=== PATIENT | female | born 1950 | race Caucasian/White ===

== ENCOUNTER 2019-10-09 11:20 | Emergency (ER) | payer OTHER, MEDICARE, SELFPAY ==
--- NOTE | ~2019-10-09 | CT_ITS ---
EXAMINATION: CT cervical spine wo con DATE: 10/09/2019 12:50 INDICATION: Neck pain TECHNIQUE: Computed tomography (CT) of the cervical spine was performed without intravenous contrast. The dose-length product (DLP) was 318.18 mGy-cm. Automated exposure control and iterative reconstruc tion technique were employed. COMPARISON: None FINDINGS: There is no fracture, dislocation, or subluxation. Vertebral body heights and alignment are normal. The intervertebral disc spaces are maintained. The odontoid is intact. There is mild multile isabel facet and uncovertebral joint osteoarthritis. The prevertebral soft tissues are normal. IMPRESSION: 1. No acute osseous abnormality. Reviewed, dictated and finalized at location A.
--- NOTE | ~2019-10-09 | XR_ITS ---
EXAMINATION: XR ribs RT 2V w CXR 2V INDICATION: Right-sided rib pain TECHNIQUE: Frontal and lateral views of the chest and 3 views of the right ribs were obtained. COMPARISON: 05/13/2018 FINDINGS: The lungs are free of acute opacities. There is no pleural effusion or pneumothorax. The ca rdiomediastinal silhouette is normal. No acute rib fracture is identified. There is an old right sixt h rib fracture. IMPRESSION: 1. No acute cardiopulmonary abnormality or evidence of acute rib fracture. Reviewed, dictated and finalized at location A.
[2019-10-09 11:38] VITALS: BP 127/76; PULSE 77; RESP 18; TEMP 37.4; O2SAT 97
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
[2019-10-09 14:11] VITALS: BP 122/70; PULSE 70; RESP 18; O2SAT 100
== END 2019-10-09 14:10 | disposition home or self-care (01) ==
PROVIDERS: Emergency Provider Emergency Medicine; PCP Family Medicine Adolescent Medicine
DX: R07.81 Pleurodynia (principal); I48.91 Unspecified atrial fibrillation; Z79.01 Long term (current) use of anticoagulants; F32.9 Major depressive disorder, single episode, unspecified; Z87.891 Personal history of nicotine dependence; V49.00XA Driver injured in collision with unspecified motor vehicles in nontraffic accident, initial encounter
CPT/HCPCS: 71046; 71100; 72125; 99284

== ENCOUNTER → 2020-05-01 13:34 | Outpatient (CLI) | payer MEDICARE, SELFPAY ==
--- NOTE | ~2020-05-01 | MM_ITS ---
EXAMINATION: MM screening [facility] BI w mary HISTORY: Screening mammogram TECHNIQUE: Craniocaudal and mediolateral oblique 3-D tomosynthesis images were obtained and synthetic 2-D images were generated. CAD analysis was submitted and interpreted. COMPARISON: 02/16/2019 left diagnostic mammogram 01/28/2019, 01/17/2018, 12/04/2016 bilateral digital screening mammogram examinations BREAST PARENCHYMAL COMPOSITION: There are scattered areas of fibroglandular density. FINDINGS: Stable fibroglandular asymmetry. Stable benign-appearing intramammary lymph node in the out er mid right breast. There is no evidence of suspicious mass, calcification, or architectural distort ion to suggest malignancy in either breast. There has been no suspicious interval change. IMPRESSION: 1. No mammographic evidence of malignancy. 2. Recommend routine screening mammography in one year. BI-RADS Category 2: Benign finding(s). Reviewed, dictated and finalized at location A. 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
== END ==
PROVIDERS: PCP Family Medicine Adolescent Medicine; Visit Provider Obstetrics & Gynecology
DX: Z12.31 Encounter for screening mammogram for malignant neoplasm of breast (principal)
CPT/HCPCS: 77063; 77067

== ENCOUNTER → 2021-05-22 09:05 | Outpatient (CLI) | payer MEDICARE, SELFPAY ==
--- NOTE | ~2021-05-22 | XR_ITS ---
EXAMINATION: XR chest 2V 05/22/2021 09:35 INDICATION: Cough PROCEDURE: 2 view chest COMPARISON: Comparison to multiple prior studies sequentially, with oldest reviewed study dated 09/20. FINDINGS: The lungs are clear. The cardiomediastinal silhouette is within normal limits. There are no pleural effusions. There is no pneumothorax suspected. IMPRESSION: 1: NO ACUTE CARDIOPULMONARY DISEASE. Reviewed, dictated and finalized at location A. 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
== END ==
PROVIDERS: PCP Family Medicine Adolescent Medicine; Visit Provider Physician Assistant
DX: R05.9 Cough, unspecified (principal)
CPT/HCPCS: 71046

== ENCOUNTER → 2021-11-10 10:45 | Outpatient (CLI) | payer MEDICARE, SELFPAY ==
--- NOTE | ~2021-11-10 | MM_ITS ---
EXAMINATION: MM screening [facility] BI w mary HISTORY: Screening TECHNIQUE: Craniocaudal and mediolateral oblique 3-D tomosynthesis images were obtained and synthetic 2-D images were generated. CAD analysis was submitted and interpreted. COMPARISON: Comparison to multiple prior studies sequentially, with oldest reviewed study dated 11/2015. BREAST PARENCHYMAL COMPOSITION: There are scattered areas of fibroglandular density. FINDINGS: There is no evidence of suspicious mass, calcification, or architectural distortion to sugg est malignancy in either breast. There has been no suspicious interval change. IMPRESSION: 1. No mammographic evidence of malignancy. 2. Recommend routine screening mammography in one year. BI-RADS Category 1: Negative Reviewed, dictated and finalized at location A.
--- NOTE | ~2021-11-10 | DEXA_ITS ---
Bone Density Report Name: KENYETTA BRAVO Age: 71 Sex: Female Ethnicity: White Date of : 1950 Indication: postmenopausal; screening for osteoporosis; height loss; Referring Provider: Tressa Dyer Study: Bone densitometry was performed. Exam Date: November 10, 2021 Accession number: [id number] Bone Density: Region BMD T-score Z-score Classification AP Spine (L1-L4) 1.151 0.9 3.0 Normal Femoral Neck (Left) 0.777 -0.7 1.1 Normal Total Hip (Left) 0.965 0.2 1.7 Normal Femoral Neck (Right) 0.793 -0.5 1.3 Normal Total Hip (Right) 0.928 -0.1 1.4 Normal Total Hip Mean 0.946 0.1 1.6 Normal World Health Organization criteria for BMD impression classify patients as: Normal (T-score at or above -1.0), Osteopenia (T-score between -1.0 and -2.5), or Osteoporosis (T-score at or below -2.5). 10-year Fracture Risk: FRAX not reported because: All T-scores for Spine Total, Hip Total, Femoral Neck at or above -1.0 Previous Exams: Region Exam Age BMD T-score BMD Change BMD Change Date g/cm2 vs Baseline vs Previous AP Spine(L1-L4) 11/10/2021 71 1.151 0.9 -0.019 -0.029* 01/17/2018 67 1.180 1.2 0.010 0.017 11/07/2014 64 1.163 1.1 -0.007 0.056* 09/04/2013 63 1.107 0.5 -0.062 0.041* 08/31/2011 61 1.067 0.2 -0.103 0.002 12/28/2008 58 1.064 0.2 -0.105 -0.032* 11/16/2004 54 1.096 0.4 -0.073 -0.073 10/20/2002 52 1.170 1.1 Total Hip(Left) 11/10/2021 71 0.965 0.2 -0.011 0.001 01/17/2018 67 0.964 0.2 -0.012 -0.019 11/07/2014 64 0.983 0.3 0.007 0.032* 09/04/2013 63 0.952 0.1 -0.025 -0.020 08/31/2011 61 0.972 0.2 -0.004 0.035* 12/28/2008 58 0.937 0.0 -0.039 -0.122* 11/16/2004 54 1.059 1.0 0.082 0.082 10/20/2002 52 0.976 0.3 Total Hip(Right) 11/10/2021 71 0.928 -0.1 -0.025 -0.005 01/17/2018 67 0.933 -0.1 -0.020 -0.047* 11/07/2014 64 0.980 0.3 0.027 -0.002 09/04/2013 63 0.982 0.3 0.029 0.036* 08/31/2011 61 0.947 0.0 -0.006 0.026 12/28/2008 58 0.920 -0.2 -0.033 -0.064* 11/16/2004 54 0.985 0.4 0.032 0.032 10/20/2002 52 0.953 0.1 *Denotes significance at 95% confidence level,
== END ==
PROVIDERS: PCP Family Medicine Adolescent Medicine; Visit Provider Obstetrics & Gynecology
DX: Z12.31 Encounter for screening mammogram for malignant neoplasm of breast (principal); Z78.0 Asymptomatic menopausal state
CPT/HCPCS: 77063; 77067; 77080

== ENCOUNTER 2022-07-18 08:32 | Emergency (ER) | payer MEDICARE, SELFPAY ==
--- NOTE | ~2022-07-18 | CT_ITS ---
EXAMINATION: CT abdomen pelvis w con INDICATION: Left lower quadrant pain TECHNIQUE: Computed tomographic images of the abdomen and pelvis were obtained after the administrati on of 100 cc of Omnipaque 350 intravenous contrast. The dose-length product (DLP) was 864.77 mGy-cm. Automated exposure control and iterative reconstruction technique were employed. COMPARISON: 10/03/2017 FINDINGS: Minimal dependent atelectasis is present in the lung bases. The heart size is normal. The l iver is diffusely low in attenuation when compared with the spleen, consistent with hepatic steatosis . The spleen, pancreas, gallbladder, and adrenal glands are normal. The left kidney is unremarkable. There is a 2.8 cm cyst of the right kidney. A circumaortic left renal vein is noted. No pathologicall y enlarged abdominal or pelvic lymph nodes are identified. There is colonic diverticulosis. There is edematous stranding of the perisigmoid fat adjacent to the proximal sigmoid colon. No abscess or perf oration are identified. There is severe lower lumbar spondylosis. IMPRESSION: 1. Uncomplicated sigmoid diverticulitis. Reviewed, dictated and finalized at location L.
[2022-07-18 08:33] VITALS: BP 106/60; PULSE 81; RESP 18; TEMP 36.5; O2SAT 95
[2022-07-18 08:49] LABS: Basophils Percent Auto 0.1 % (0.2-1.2); Eosinophils Absolute Auto 0.2 K/mm3 (0-0.3); Eosinophils Percent Auto 2.6 % (0-4.4); Hematocrit 46.6 % (37.0-47.0); Hemoglobin 15.4 g/dL (12.0-15.0); Immature Granulocyte Absolute 0.02 K/mm3 (0.00-0.031); Immature Granulocyte Percent A 0.2 % (0-0.5); Lymphocytes Absolute Auto 1.89 K/mm3 (0.9-3.2); Lymphocytes Percent Auto 20.4 % (18.3-44.2); Mean Corpuscular Hemoglobin 30.1 pg (26-34); Mean Platelet Volume 9.1 fl (7.4-10.4); Monocytes Absolute Auto 1.2 K/mm3 (0.1-0.6); Monocytes Percent Auto 13.3 % (2.6-8.5); Neutrophils Absolute Auto 5.9 K/mm3 (1.3-6.7); Neutrophils Percent Auto 63.4 % (45.5-73.1); Platelet Count Result 288 k/mm3 (150-375); Red Blood Count 5.12 M/mm3 (4.2-5.4); Red Cell Distribution Width 12.9 % (11.5-14.5); White Blood Count 9.3 K/mm3 (4.5-10.0)
[2022-07-18 08:54] LABS: Appearance Urine Clear (Clear); Bacteria Urine None Seen /hpf; Bilirubin Urine Negative (Negative); Blood Urine Negative (Negative); Color Urine Dark Yellow (Yellow); Glucose Urine UA Negative (Negative); Ketones Urine Negative (Negative); Leukocyte Esterase Ur 1+ LEU/UL (Negative); Nitrate Urine Negative (Negative); Non Pathogenic Casts 0-2; Protein Urine Trace mg/dL (Negative); RBC Urine 0-2 /hpf (0-2); Specific Grav Ur 1.018 (1.001-1.035); Squamous Epithelial Cell Urine None seen /hpf (Few); Urobilinogen Urine 0.2 mg/dL (<2.0); pH Urine 5.5 (5.0-9.0)
[2022-07-18 08:56] LABS: Add Urine Microscopic? YES
[2022-07-18 08:59] LABS: Alanine Aminotransferase 33 U/L (6-35); Albumin Level 4.6 g/dL (3.5-5.1); Alkaline Phosphatase 80 U/L (38-126); Anion Gap 7 mmol/L (8-16); Aspartate Amino Transferase 43 U/L (14-36); Bilirubin,Total 1.5 mg/dL (0.2-1.3); Blood Urea Nitrogen 13 mg/dL (7-17); Calcium 9.7 mg/dL (8.4-10.2); Carbon Dioxide 27 mmol/L (22-30); Chloride 106 mmol/L (98-107); Estimated CRCL calculation 49 ml/min; Estimated Glomerular Filt Rate 55; Glucose 112 mg/dL (65-110); Lipase 90 U/L (23-300); Potassium 4.2 mmol/L (3.4-5.0); Sodium 140 mmol/L (137-145)
--- NOTE | 2022-07-18 10:31 | ED.ABDPAIN ---
HPI - Abdominal Pain General Chief Complaint: Abdominal Pain Stated Complaint: abdominal pain since Friday janel Time Seen by Provider: 07/18/22 09:30 History of Present Illness HPI narrative: 72-year-old female here for evaluation of diffuse crampy lower abdominal pain x4 days. She has a history of diverticulitis and states it feels similar. She has been having numerous episodes of diarrhea, nausea but no vomiting. Has been using leftover dicyclomine without relief of her symptoms. No fevers, chills, chest pain, shortness of breath. No blood in her stools. She had sloppy [employer] for dinner last night. Related Data Home Medications Medication Instructions Recorded Confirmed ascorbic acid (vitamin C) 1,000 mg 1 g PO DAILY 05/22/21 06/11/22 tablet aspirin 81 mg tablet,delayed 81 mg PO DAILY 05/22/21 06/11/22 release (Adult Aspirin Regimen) cetirizine 10 mg capsule (Allergy 10 mg PO DAILY PRN Allergic 05/22/21 06/11/22 Relief (cetirizine)) Symptoms fluticasone propionate 50 2 spray intranasal DAILY 05/22/21 06/11/22 mcg/actuation nasal spray,suspension (Allergy Relief (fluticasone)) multivitamin-iron (hematinic) 1 tablet PO DAILY 05/22/21 06/11/22 potassium gluconate 595 mg (99 mg) 595 mg PO DAILY 05/22/21 06/11/22 tablet psyllium husk 0.52 gram capsule 1.56 g PO BID 05/22/21 06/11/22 (Fiber (psyllium husk)) Allergies Allergy/AdvReac Type Severity Reaction Status Date / Time amoxicillin Allergy Unknown Hives Verified 07/18/22 12:03 benztropine Allergy Unknown Confusion Verified 07/18/22 12:03 Cephalosporins Allergy Unknown Confusion Verified 07/18/22 12:03 Penicillins Allergy Unknown Hives Verified 07/18/22 12:03 promethazine Allergy Unknown Confusion Verified 07/18/22 12:03 sulfanilamide Allergy Unknown Hives Verified 07/18/22 12:03 BENZTROPINE MESYLATE Allergy Mild Confusion Uncoded 06/11/22 09:40 Review of Systems Review of Systems: Gen: Denies fevers or chills Eyes: Denies eye pain or visual change ENT: Denies congestion Respiratory: Denies shortness of breath or cough CV: Denies chest pain or palpitations GI: Reports abdominal pain, nausea and diarrhea : denies burning, urgency, frequency or hematuria Musculoskeletal: Denies back pain or muscle pain Neuro: Denies numbness, tingling, weakness or focal weakness Skin: Denies rash Except as documented, all other systems reviewed and negative PMFSH Past Medical History Medical History Anxiety History of atrial fibrillation History of depression Hypertension Surgical History Surgical History History of mandibular surgery Family History Family History Sibling Diabetes mellitus Family history of lung cancer Father Cerebrovascular accident Mother Family history of chronic obstructive pulmonary disease Family history of congestive heart failure Social History Social History Smoking status: Former smoker Second hand tobacco smoke exposure: Yes Smoking end date: 03/24/92 Alcohol intake: never Substance use: never Substance use type: does not use Living arrangements: with family Occupation/Education: retired Gender identity (if verbalized by the patient): Female Sexual Orientation (if Verbalized by the Patient): Straight or Heterosexual Spiritual care concerns: No Agree to blood products: Yes Exam Narrative: APPEARANCE: Well appearing, no pain in distress, well-nourished. Head: Normocephalic and atraumatic. EYES: PERRLA/EOMI, conjunctivae clear NOSE: No nasal drainage EARS: External ear normal in appearance THROAT: Oropharynx is clear. Mucous membranes are moist. NECK: Supple. No adenopathy, no masses. RESPIRATORY: Airway patent, respirations nonlabored. Clear to
[2022-07-18] MEDS: SODIUM CHLORIDE 0.9% IV 1,000 ML 999 ML IV CONT (10:55)
[2022-07-18] MEDS: ONDANSETRON INJ 4 MG/2 ML VIAL IV PUSH (10:55)
[2022-07-18] MEDS: DICYCLOMINE HCL INJ 20 MG/2 ML VIAL IM (10:56)
[2022-07-18 11:50] VITALS: BP 136/60; PULSE 66; RESP 20; O2SAT 97
[2022-07-18 12:25] VITALS: BP 129/55; PULSE 60; RESP 16; O2SAT 100
== END 2022-07-18 12:25 | disposition home or self-care (01) ==
PROVIDERS: Emergency Medicine; Emergency Provider Physician Assistant; PCP Family Medicine Adolescent Medicine
DX: K57.32 Diverticulitis of large intestine without perforation or abscess without bleeding (principal); I48.91 Unspecified atrial fibrillation; I10 Essential (primary) hypertension; F41.9 Anxiety disorder, unspecified; Z79.82 Long term (current) use of aspirin; Z87.891 Personal history of nicotine dependence
CPT/HCPCS: 36415; 74177; 80053; 81001; 83690; 85025; 87086; 87088; 96361; 96372; 96374; 99284; J0500; J2405; J7030; Q9967

== ENCOUNTER 2023-02-06 08:55 | Emergency (ER) | payer MEDICARE, SELFPAY ==
[2023-02-06] VITALS (12 sets, daily range): BP systolic 108–131; BP diastolic 46–61; PULSE 61–85; RESP 12–18; TEMP 36.6; O2SAT 90–99
--- NOTE | ~2023-02-06 | CT_ITS ---
EXAMINATION: CT abdomen pelvis w con DATE: 02/06/2023 10:14 INDICATION: Abdominal pain. Nausea. TECHNIQUE: Computed tomography (CT) of the abdomen and pelvis was performed with 100 mL Omnipaque 350 intravenous contrast. Automated exposure control and iterative reconstruction technique were employe d. The dose-length product was 702.53 mGy-cm. COMPARISON: CT abdomen and pelvis 07/18/2022 FINDINGS: The visualized portions of the lung bases demonstrate mild atelectasis and mild chronic alan g disease. There is mild bronchiectasis bilaterally. No pleural effusion. The heart size is normal. N o pericardial effusion. There is a small sliding hiatal hernia. There is a 5 mm cyst in the liver. Th e gallbladder, spleen, pancreas, adrenal glands, and left kidney are normal. There is a 2.8 cm cyst i n right kidney. There are scattered diverticula in the colon. There is fat stranding around a diverti culum of sigmoid colon with local colon wall thickening, consistent with diverticulitis. There are no dilated loops of bowel. The appendix is normal. There are no pathologically enlarged lymph nodes. Th ere is no free intraperitoneal fluid. There is severe lumbar spondylosis and mild thoracic spondylosi s. IMPRESSION: 1. Acute sigmoid diverticulitis. No perforation or abscess. Reviewed, dictated and finalized at location A. 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
--- NOTE | 2023-02-06 09:04 | ED.ABDPAIN ---
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 She states that symptoms began last week and seemed to have worsened. She notes that the pain was at its worst yesterday. Pain feels cramping and sharp and seems to worsen whenever she has anything to eat or drink. She does note that she has had multiple episodes of diarrhea since symptoms began last week. She had 2 episodes of dark tarry stools but other than that it has lightened up significantly and now is light yellow in color. Last bowel movement was 2 days ago. She has had significant decreased p.o. intake only having a small bowl of soup yesterday and nothing by mouth today. She has had some associated nausea, no vomiting. She denies any fever chills. She denies any respiratory symptoms aside from a chronic cough since having COVID 3 years ago. She had 1 prior laparoscopic abdominal surgery for endometriosis in the past. She denies any urinary symptoms, no hematuria, no vaginal bleeding or discharge. She does note that this feels different than prior episodes of diverticulitis in the past. Her last colonoscopy was sometime around 2017 and just showed diverticulosis. No family history of colon cancer. Related Data Home Medications Medication Instructions Recorded Confirmed aspirin 81 mg tablet,delayed 81 mg PO DAILY 05/22/21 06/11/22 release (Adult Aspirin Regimen) cetirizine 10 mg capsule (Allergy 10 mg PO DAILY PRN Allergic 05/22/21 06/11/22 Relief (cetirizine)) Symptoms fluticasone propionate 50 2 spray intranasal DAILY 05/22/21 06/11/22 mcg/actuation nasal spray,suspension (Allergy Relief (fluticasone)) multivitamin-iron (hematinic) 1 tablet PO DAILY 05/22/21 06/11/22 potassium gluconate 595 mg (99 mg) 595 mg PO DAILY 05/22/21 06/11/22 tablet psyllium husk 0.52 gram capsule 1.56 g PO BID 05/22/21 06/11/22 (Fiber (psyllium husk)) Allergies Allergy/AdvReac Type Severity Reaction Status Date / Time amoxicillin Allergy Unknown Hives Verified 02/06/23 08:56 benztropine Allergy Unknown Confusion Verified 02/06/23 08:56 Cephalosporins Allergy Unknown Confusion Verified 02/06/23 08:56 Penicillins Allergy Unknown Hives Verified 02/06/23 08:56 promethazine Allergy Unknown Confusion Verified 02/06/23 08:56 sulfanilamide Allergy Unknown Hives Verified 02/06/23 08:56 BENZTROPINE MESYLATE Allergy Mild Confusion Uncoded 02/06/23 08:56 Review of Systems Review of Systems: All systems reviewed & are unremarkable except as noted in HPI and below PMFSH Past Medical History Medical History Anxiety History of atrial fibrillation History of depression Hypertension Surgical History Surgical History History of mandibular surgery Family History Family History Sibling Diabetes mellitus Family history of lung cancer Father Cerebrovascular accident Mother Family history of chronic obstructive pulmonary disease Family history of congestive heart failure Social History Social History Smoking status: Former smoker Second hand tobacco smoke exposure: Yes Smoking end date: 03/24/92 Alcohol intake: never Substance use: never Substance use type: does not use Living arrangements: with family Occupation/Education: retired Gender identity (if verbalized by the patient): Female Sexual Orientation (if Verbalized by the Patient): Straight or Heterosexual Spiritual care concerns: No Agree to blood products: Yes Exam Narrative: GENERAL: Well-appearing, well-nourished, and in no acute distress. HE
[2023-02-06 09:35] LABS: Basophils Percent Auto 0.2 % (0.2-1.2); Eosinophils Absolute Auto 0.2 K/mm3 (0-0.3); Eosinophils Percent Auto 2.9 % (0-4.4); Hematocrit 44.3 % (37.0-47.0); Hemoglobin 14.6 g/dL (12.0-15.0); Immature Granulocyte Absolute 0.02 K/mm3 (0.00-0.031); Immature Granulocyte Percent A 0.2 % (0-0.5); Lymphocytes Absolute Auto 1.47 K/mm3 (0.9-3.2); Lymphocytes Percent Auto 17.5 % (18.3-44.2); Mean Corpuscular Hemoglobin 30.3 pg (26-34); Mean Corpuscular Volume 91.9 fl (80-100); Mean Platelet Volume 9.8 fl (7.4-10.4); Monocytes Absolute Auto 1.2 K/mm3 (0.1-0.6); Neutrophils Absolute Auto 5.5 K/mm3 (1.3-6.7); Neutrophils Percent Auto 65.2 % (45.5-73.1); Platelet Count Result 263 k/mm3 (150-375); Red Blood Count 4.82 M/mm3 (4.2-5.4); Red Cell Distribution Width 13.2 % (11.5-14.5); White Blood Count 8.4 K/mm3 (4.5-10.0)
[2023-02-06] MEDS: MORPHINE SULFATE (*CRX) 4 MG/ML INJ IV PUSH (09:35)
[2023-02-06] MEDS: ONDANSETRON INJ 4 MG/2 ML VIAL IV PUSH (09:35)
[2023-02-06] MEDS: SODIUM CHLORIDE 0.9% IV 1,000 ML 999 ML IV CONT (09:35)
[2023-02-06 09:45] LABS: Appearance Urine Cloudy (Clear); Bacteria Urine None Seen /hpf; Bilirubin Urine Negative (Negative); Blood Urine Negative (Negative); Color Urine Dark Yellow (Yellow); Glucose Urine UA Negative (Negative); Hyaline Casts Urine Present /lpf; Ketones Urine 2+ mg/dL (Negative); Leukocyte Esterase Ur 1+ LEU/UL (Negative); Need Manual Microscopic Reviewed; Nitrate Urine Negative (Negative); Protein Urine 1+ mg/dL (Negative); RBC Urine 0-2 /hpf (0-2); Specific Grav Ur 1.019 (1.001-1.035); Squamous Epithelial Cell Urine Occasional /hpf (Few); pH Urine 5.5 (5.0-9.0)
[2023-02-06 09:46] LABS: Lactic Acid Reflex 1.2 mmol/L (0.7-2.0)
[2023-02-06 09:47] LABS: Add Urine Microscopic? YES; Alanine Aminotransferase 30 U/L (6-35); Albumin Level 4.4 g/dL (3.5-5.1); Alkaline Phosphatase 77 U/L (38-126); Anion Gap 14 mmol/L (8-16); Aspartate Amino Transferase 30 U/L (14-36); Blood Urea Nitrogen 13 mg/dL (7-17); Calcium 9.5 mg/dL (8.4-10.2); Carbon Dioxide 21 mmol/L (22-30); Chloride 107 mmol/L (98-107); Estimated CRCL calculation 53 ml/min; Estimated Glomerular Filt Rate > 60; Glucose 104 mg/dL (65-110); Lipase 65 U/L (23-300); Potassium 4.1 mmol/L (3.4-5.0); Sodium 142 mmol/L (137-145)
[2023-02-06 09:48] LABS: INR 1.2; Prothrombin Time 15.6 Seconds (11.1-14.7)
[2023-02-06 09:49] LABS: Partial Thromboplastin Time 35.6 SECONDS (22.3-36.8)
[2023-02-06] MEDS: metroNIDAZOLE 500 MG TABLET PO (11:57)
[2023-02-06] MEDS: CIPROFLOXACIN 500 MG TAB PO (11:57)
== END 2023-02-06 12:09 | disposition home or self-care (01) ==
PROVIDERS: Emergency Provider Student in an Organized Health Care Education/Training Program; PCP Family Medicine Adolescent Medicine
DX: K57.32 Diverticulitis of large intestine without perforation or abscess without bleeding (principal); I48.91 Unspecified atrial fibrillation; I10 Essential (primary) hypertension; F32.A Depression, unspecified; F41.9 Anxiety disorder, unspecified; Z86.16 Personal history of COVID-19; Z87.891 Personal history of nicotine dependence; Z79.82 Long term (current) use of aspirin
CPT/HCPCS: 36415; 74177; 80053; 81001; 83605; 83690; 85025; 85610; 85730; 87086; 87088; 96361; 96374; 96375; 99284; A9270; J2270; J2405; J7030; Q9967

== ENCOUNTER → 2023-02-17 11:46 | Outpatient (CLI) | payer MEDICARE, SELFPAY ==
--- NOTE | ~2023-02-17 | MM_ITS ---
EXAMINATION: MM screening emelina BI w mary HISTORY: Screening mammogram TECHNIQUE: Craniocaudal and mediolateral oblique 3-D tomosynthesis images were obtained and synthetic 2-D images were generated. CAD analysis was submitted and interpreted. COMPARISON: 11/10/2021, 05/01/2020 bilateral screening mammogram examinations BREAST PARENCHYMAL COMPOSITION: There are scattered areas of fibroglandular density. FINDINGS: Benign circumscribed stable intramammary lymph node, upper outer mid right breast at mid de pth. There is no evidence of suspicious mass, calcification, or architectural distortion to suggest m alignancy in either breast. There has been no suspicious interval change. IMPRESSION: 1. No mammographic evidence of malignancy. 2. Recommend routine screening mammography in one year. BI-RADS Category 2: Benign finding(s). Reviewed, dictated and finalized at location A. 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
== END ==
PROVIDERS: PCP Nurse Practitioner Obstetrics & Gynecology; Visit Provider Nurse Practitioner Obstetrics & Gynecology
DX: Z12.31 Encounter for screening mammogram for malignant neoplasm of breast (principal)
CPT/HCPCS: 77063; 77067

== ENCOUNTER 2023-11-07 13:52 | Emergency (ER) | payer MEDICARE, SELFPAY ==
--- NOTE | ~2023-11-07 | CT_ITS ---
EXAMINATION: CT brain wo con DATE: 11/07/2023 14:11 INDICATION: Head injury. TECHNIQUE: Computed tomography (CT) of the head was performed without intravenous contrast. The mA wa s adjusted according to patient size. Iterative reconstruction technique was employed. The dose-lengt h product was 529.67 mGy-cm. COMPARISON: Head CT 05/13/2018 FINDINGS: There is no intracranial hemorrhage, acute infarction, or abnormal intracranial mass lesion . The ventricles are normal in size. The orbits are normal. The paranasal sinuses are clear. There is a trace right mastoid effusion. There is right posterolateral scalp soft tissue swelling. IMPRESSION: 1. Normal brain. Reviewed, dictated and finalized at location A. IMPRESSION: 1. Normal brain.
--- NOTE | ~2023-11-07 | CT_ITS ---
EXAMINATION: CT cervical spine wo con DATE: 11/07/2023 14:10 INDICATION: Head injury. TECHNIQUE: Computed tomography (CT) of the cervical spine was performed without intravenous contrast. Automated exposure control and iterative reconstruction technique were employed. The dose-length pro duct was 433.50 mGy-cm. COMPARISON: CT cervical spine 10/09/2019 FINDINGS: There is 4 degrees dextrocurvature of cervical spine. Vertebral body heights are normal. In tervertebral disc heights are normal. The following disc levels are specifically discussed: C2-C3: There is no uncovertebral joint osteoarthritis. There is mild right and severe left facet join t osteoarthritis. There is mild left neural foraminal stenosis. There is no central canal stenosis. C3-C4: There is mild left uncovertebral joint osteoarthritis. There is moderate and severe left facet joint osteoarthritis. There is mild left neural foraminal stenosis. There is no central canal stenos is. C4-C5: There is mild left uncovertebral joint osteoarthritis. There is severe left facet joint osteoa rthritis. There is no neural foraminal stenosis. There is no central canal stenosis. C5-C6: There is no uncovertebral joint osteoarthritis. There is severe left facet joint osteoarthriti s. There is mild left neural foraminal stenosis. There is no central canal stenosis. C6-C7: There is no uncovertebral joint osteoarthritis. There is mild bilateral facet joint osteoarthr itis. There is no neural foraminal stenosis. There is no central canal stenosis. C7-T1: There is no uncovertebral joint osteoarthritis. There is severe bilateral facet joint osteoart hritis. There is mild bilateral neural foraminal stenosis. There is no central canal stenosis. IMPRESSION: 1. No fracture. 2. Mild cervical spondylosis. Reviewed, dictated and finalized at location A.
[2023-11-07 13:54] VITALS: BP 144/56; PULSE 83; RESP 16; O2SAT 97
--- NOTE | 2023-11-07 15:49 | ED.FALL ---
HPI - Fall General Chief Complaint: Fall Stated Complaint: fall Time Seen by Provider: 11/07/23 14:58 History of Present Illness HPI Narrative: 73-year-old female presenting to the emergency department for evaluation after having a fall down 3 steps. Patient was washing a door and became confused, stepped back as if she was on level ground, and fell down the rest the steps and did strike her head against a concrete wall. Patient denies any loss of consciousness. Related Data Home Medications Medication Instructions Recorded Confirmed aspirin 81 mg tablet,delayed 81 mg PO DAILY 05/22/21 06/10/23 release (Adult Aspirin Regimen) cetirizine 10 mg capsule (Allergy 10 mg PO DAILY PRN Allergic 05/22/21 06/10/23 Relief (cetirizine)) Symptoms fluticasone propionate 50 2 spray intranasal DAILY 05/22/21 06/10/23 mcg/actuation nasal spray,suspension (Allergy Relief (fluticasone)) multivitamin-iron (hematinic) 1 tablet PO DAILY 05/22/21 06/10/23 potassium gluconate 595 mg (99 mg) 595 mg PO DAILY 05/22/21 06/10/23 tablet psyllium husk 0.52 gram capsule 1.56 g PO BID 05/22/21 06/10/23 (Fiber (psyllium husk)) Allergies Allergy/AdvReac Type Severity Reaction Status Date / Time amoxicillin Allergy Unknown Hives Verified 11/07/23 15:09 benztropine Allergy Unknown Confusion Verified 11/07/23 15:09 Cephalosporins Allergy Unknown Confusion Verified 11/07/23 15:09 Penicillins Allergy Unknown Hives Verified 11/07/23 15:09 promethazine Allergy Unknown Confusion Verified 11/07/23 15:09 sulfanilamide Allergy Unknown Hives Verified 11/07/23 15:09 BENZTROPINE MESYLATE Allergy Mild Confusion Uncoded 11/07/23 15:09 Review of Systems Review of Systems: All systems reviewed & are unremarkable except as noted in HPI and below PMFSH Past Medical History Medical History (Updated 11/07/23 @ 15:51 by Jose A Michelle MD) Anxiety History of atrial fibrillation History of depression History of diverticulitis (2018) Hypertension Surgical History Surgical History History of mandibular surgery Family History Family History Sibling Diabetes mellitus Family history of lung cancer Father Cerebrovascular accident Mother Family history of chronic obstructive pulmonary disease Family history of congestive heart failure Social History Social History Smoking status: Former smoker Second hand tobacco smoke exposure: Yes Smoking end date: 03/24/92 Alcohol intake: never Substance use: never Substance use type: does not use Living arrangements: with family Occupation/Education: retired Gender identity (if verbalized by the patient): Female Sexual Orientation (if Verbalized by the Patient): Straight or Heterosexual Spiritual care concerns: No Agree to blood products: Yes Exam Narrative: APPEARANCE: Well appearing, no pain, no distress, well-nourished. HEAD: normocephalic, posterior scalp hematoma. EYES: PERRLA/EOMI, conjunctivae clear. NOSE: Normal no drainage EARS:TMS clear with good light reflex. THROAT: Pharynx clear, no exudate. NECK: Supple. No adenopathy, no masses. RESPIRATORY: Airway patent, respirations nonlabored. Clear to auscultation bilaterally, no rales, rhonchi, wheezing. CARDIOVASCULAR: Regular rate and rhythm without murmurs rubs or gallops. ABDOMINAL: Soft, nontender, nondistended, normal bowel sounds MUSCULOSKELETAL: Moves all extremities. Strength/ROM intact, No edema, No calf tenderness. NEURO: Alert. Cranial nerves II through XII intact. Grossly intact SKIN: Warm, dry. Normal Color Course Vital Signs Vital signs: Vital Signs Pulse Rate 83 11/07/23 13:54 Respiratory Rate 16 11/07/23 13:54 Blood Pressure 144/56 H 11/07/23 13:54 Pulse Oximetry 97 11/07/23 13:54 Temperatur
[2023-11-07 16:06] VITALS: BP 132/64; PULSE 78; RESP 16; TEMP 36.4; O2SAT 98
== END 2023-11-07 16:07 | disposition home or self-care (01) ==
PROVIDERS: Emergency Provider Emergency Medicine; PCP Family Medicine Adolescent Medicine
DX: S00.03XA Contusion of scalp, initial encounter (principal); I48.91 Unspecified atrial fibrillation; I10 Essential (primary) hypertension; Z87.891 Personal history of nicotine dependence; M47.812 Spondylosis without myelopathy or radiculopathy, cervical region; F41.9 Anxiety disorder, unspecified; F32.A Depression, unspecified; Z79.899 Other long term (current) drug therapy; Z79.82 Long term (current) use of aspirin; W10.9XXA Fall (on) (from) unspecified stairs and steps, initial encounter
CPT/HCPCS: 70450; 72125; 99284

== ENCOUNTER 2024-02-13 01:56 | Day surgery (SDC) | payer MEDICARE, SELFPAY ==
[2024-02-06 15:07] VITALS: BMI 32.9
[2024-02-13 06:22] VITALS: BP 147/76; PULSE 110; RESP 20; TEMP 36.3; O2SAT 96; BMI 31.8
[2024-02-13] MEDS: LACTATED RINGERS 1,000 ML 150 ML IV CONT (06:31)
--- NOTE | 2024-02-13 07:39 | PM.IMHP ---
H&P: HPI History of Present Illness Date/Time: 02/13/24 07:39 Chief Complaint: screening colonoscopy Narrative: This is the patient's first colonoscopy after almost 10 years. There are no GI symptoms and there is no family history of colorectal cancer. Review of Systems Review of Systems: All systems reviewed & are unremarkable except as noted in HPI and below PMFSH Past Medical History Medical History (Updated 02/13/24 @ 07:40 by Juwan Rader MD) Anxiety Constipation History of atrial fibrillation History of depression History of diverticulitis (2018) Hypertension LLQ pain Surgical History Surgical History History of mandibular surgery Family History Family History Sibling Diabetes mellitus Family history of lung cancer Father Cerebrovascular accident Mother Family history of chronic obstructive pulmonary disease Family history of congestive heart failure Social History Social History Smoking status: Former smoker Tobacco type: cigarettes Second hand tobacco smoke exposure: Yes Smoking end date: 03/24/92 Alcohol intake: never Substance use: never Substance use type: does not use Living arrangements: with family Occupation/Education: retired Gender identity (if verbalized by the patient): Female Sexual Orientation (if Verbalized by the Patient): Straight or Heterosexual Spiritual care concerns: No Agree to blood products: Yes Meds Home Medications and Allergies Home Medications Medication Instructions Recorded Confirmed Type aspirin 81 mg tablet,delayed 81 mg PO DAILY 05/22/21 02/13/24 History release (Adult Aspirin Regimen) multivitamin-iron (hematinic) 1 tablet PO DAILY 05/22/21 02/13/24 History psyllium husk 0.52 gram capsule 1.56 g PO BID 05/22/21 02/13/24 History (Fiber (psyllium husk)) metoprolol succinate 50 mg 50 mg PO DAILY #90 tabs 06/10/23 02/13/24 Rx tablet,extended release 24 hr atorvastatin 20 mg tablet 20 mg PO DAILY #90 tabs 06/11/23 02/13/24 Rx citalopram 20 mg tablet 20 mg PO DAILY #90 tabs 09/03/23 02/13/24 Rx alprazolam 0.5 mg tablet 1 mg PO QHS PRN anxiety #90 tabs 10/17/23 02/13/24 Rx Allergies Allergy/AdvReac Type Severity Reaction Status Date / Time amoxicillin Allergy Unknown Hives Verified 02/13/24 06:19 benztropine Allergy Unknown Confusion Verified 02/13/24 06:19 Cephalosporins Allergy Unknown Confusion Verified 02/13/24 06:19 Penicillins Allergy Unknown Hives Verified 02/13/24 06:19 promethazine Allergy Unknown Confusion Verified 02/13/24 06:19 sulfanilamide Allergy Unknown Hives Verified 02/13/24 06:19 BENZTROPINE MESYLATE Allergy Mild Confusion Uncoded 02/13/24 06:19 Vital Signs Vital Signs - 24 hr 02/13/24 06:22 Temperature 97.3 F L Pulse Rate 110 H Respiratory Rate 20 Blood Pressure 147/76 H Pulse Oximetry 96 Oxygen Delivery Room Air Exam Const: General: cooperative and healthy appearing Resp: Effort & Inspection: normal respiratory effort and able to speak in complete sentences Auscultation: clear to auscultation bilaterally Cardio: Rate: regular rate Rhythm: regular rhythm GI: Inspection: normal to inspection GI Palp: No No hepatosplenomegaly present Auscultation: normal bowel sounds Rectal Exam: deferred Skin: General skin exam: normal color Psych: Appearance: grossly normal Mental Status: mental status grossly normal Assessment and Plan Assessment and plan (1) Screening for malignant neoplasm of colon: Code(s): Z12.11 - Encounter for screening for malignant neoplasm of colon Status: Acute Plan The patient is deemed a good candidate for the procedure. Consent signed. Will proceed.
[2024-02-13 08:00] VITALS: BP 122/54; PULSE 72; RESP 29; O2SAT 96
[2024-02-13 08:10] VITALS: BP 136/63; PULSE 71; RESP 24; O2SAT 95
[2024-02-13 08:20] VITALS: BP 136/74; PULSE 71; RESP 20; O2SAT 100
== END 2024-02-13 08:23 | disposition home or self-care (01) ==
PROVIDERS: PCP Family Medicine Adolescent Medicine; Referring Provider Nurse Practitioner Family; Visit Provider Internal Medicine Gastroenterology
PROC: 0DJD8ZZ Inspection of Lower Intestinal Tract, Via Natural or Artificial Opening Endoscopic (ICD-10-PCS; CPT 45378; principal; 2024-02-13 07:30)
DX: Z12.11 Encounter for screening for malignant neoplasm of colon (principal); K57.30 Diverticulosis of large intestine without perforation or abscess without bleeding; K64.0 First degree hemorrhoids; Z87.19 Personal history of other diseases of the digestive system; I10 Essential (primary) hypertension; F32.A Depression, unspecified; F41.9 Anxiety disorder, unspecified
CPT/HCPCS: G0121; J2704; J7120

== ENCOUNTER 2024-07-08 13:40 | Outpatient (CLI) | payer MEDICARE, SELFPAY ==
--- NOTE | ~2024-07-08 | MM_ITS ---
EXAMINATION: MM screening emelina BI w mary HISTORY: Screening TECHNIQUE: Craniocaudal and mediolateral oblique 3-D tomosynthesis images were obtained and synthetic 2-D images were generated. CAD analysis was submitted and interpreted. COMPARISON: Comparison to multiple prior studies sequentially, with oldest reviewed study dated 12/23. BREAST PARENCHYMAL COMPOSITION: Not dense: There are scattered areas of fibroglandular density. FINDINGS: There are enlarged bilateral axillary lymph nodes which were not definitely visualized on p rior examinations. There is no evidence of suspicious breast mass, calcification, or architectural di stortion to suggest malignancy in either breast. There has been no suspicious interval change. IMPRESSION: 1. Bilateral axillary lymph node enlargement. 2. Correlation with bilateral axillary ultrasound recommended. Correlate for history of malignancy in cluding lymphoma. BI-RADS Category 0: Incomplete: Needs additional imaging evaluation. Reviewed, dictated and finalized at location B. IMPRESSION: 1. Bilateral axillary lymph node enlargement. 2. Correlation with bilateral axillary ultrasound recommended. Correlate for hi story of malignancy including lymphoma. BI-RADS Category 0: Incomplete: Needs additional imaging evaluation.
== END 2024-07-08 13:41 | disposition home or self-care (01) ==
LOC: MICIMG 13:41
PROVIDERS: PCP Family Medicine Adolescent Medicine; Visit Provider Family Medicine Adolescent Medicine
DX: Z12.31 Encounter for screening mammogram for malignant neoplasm of breast (principal); R92.8 Other abnormal and inconclusive findings on diagnostic imaging of breast
CPT/HCPCS: 77063; 77067

== ENCOUNTER 2024-07-13 13:40 | Outpatient (CLI) | payer MEDICARE, SELFPAY ==
--- NOTE | ~2024-07-13 | US_ITS ---
US axilla BI 07/13/2024 13:57 Indication: Bilateral axillary lymph node enlargement seen on prior mammogram Procedure: High-resolution bilateral axillary ultrasound Comparison: Mammogram dated 07/08/2024 Findings: There are normal-appearing bilateral axillary lymph nodes with fatty hilum, largest on the right measuring 1.6 cm and on the left measuring 1.8 cm. No suspicious masses to suggest malignancy. Impression: 1: Normal appearing bilateral axillary lymph nodes without suspicious mass. BI-RADS CATEGORY 3-PROBABLY BENIGN FINDING RECOMMENDATION: Six-month follow-up bilateral diagnostic mammogram recommended. Reviewed, dictated and finalized at location A. Impression: 1: Normal appearing bilateral axillary lymph nodes without suspicious mass. BI-RADS CATEGORY 3-PROBABLY BENIGN FINDING RECOMMENDATION: Six-month follow-up bilateral diagnostic mammogram recommended.
== END 2024-07-13 13:41 | disposition home or self-care (01) ==
LOC: MICIMG 13:41
PROVIDERS: PCP Family Medicine Adolescent Medicine; Visit Provider Family Medicine Adolescent Medicine
DX: R59.0 Localized enlarged lymph nodes (principal)
CPT/HCPCS: 76882

== ENCOUNTER 2024-11-10 10:01 | Inpatient (IN) | payer MEDICARE, SELFPAY ==
[2024-11-10] VITALS (29 sets, daily range): BP systolic 82–127; BP diastolic 44–66; PULSE 64–86; RESP 13–21; TEMP 36.3–36.4; O2SAT 84–100; BMI 34.2
--- NOTE | ~2024-11-10 | US_ITS ---
EXAMINATION:US venous doppler LE BI INDICATION:Left lower extremity edema TECHNIQUE: Multiple grayscale, color flow and Doppler images of the right and left lower extremity deep venous systems were obtained and reviewed. COMPARISON:No prior studies for comparison. FINDINGS: The common femoral, superficial femoral and popliteal veins demonstrate normal respiratory variation, augmentation and compressibility. Color flow is also seen within the posterior tibial, peroneal, greater saphenous and profunda veins. IMPRESSION: 1: No lower extremity deep venous thrombosis. Reviewed, dictated and finalized at location O.
--- NOTE | ~2024-11-10 | XR_ITS ---
EXAM/PROCEDURE: XR chest 1V portable - 11/10/2024 10:45 CDT HISTORY: 74 years old Female with shortness of breath DROPLET PRECAUTION TECHNIQUE: Two view(s) of the chest. COMPARISON: None available. FINDINGS: LUNGS/ PLEURA: Left lung base consolidation with air bronchograms. Right perihilar consolidation.. No appreciable pneumothorax or large pleural effusion. HEART/ MEDIASTINUM: Heart appears normal in size. BONES: Degenerative changes. OTHER: Visualized upper abdomen is unremarkable. IMPRESSION: Bilateral pulmonary consolidations may represent aspiration pneumonia in appropriate clinical settings. Clinical correlation si recommended. Short-term follow-up chest radiograph is recommended after appropriate clinical therapy to document stability and/or resolution. Reviewed, dictated and finalized at location A. IMPRESSION: Bilateral pulmonary consolidations may represent [facility]. Clinical correlation si recommended. Short-term follow -up chest radiograph is recommended after appropriate clinical therapy to docum ent stability and/or resolution.
--- NOTE | 2024-11-10 10:21 | ECG_ITS ---
Test Date: 2024-11-10 10:09:29 Measurements Intervals [place] Rate: 89 P: 8 UT: 141 QRS: 15 QRSD: 81 T: 22 QT: 388 QTc: 472 Interpretive Statements SINUS RHYTHM BASELINE ARTIFACT- I, II, III, AVR, AVL, AVF, V1-V3 NORMAL ECG No previous ECG available for comparison Electronically Signed On 11-10-2024 10:41:40 CDT by Huang Dela Cruz D.O.
--- NOTE | 2024-11-10 10:24 | ED_ITS ---
HPI - General Adult General Chief complaint: Shortness of Breath/Dyspnea Stated complaint: short of breath Time Seen by Provider: 11/10/24 10:11 History of Present Illness HPI narrative: Patient 74-year-old female who presents emergency department chief complaint of shortness of breath. Patient reports that she has had a cough for the last 2 months the patient states that she was evaluated for possible hypothyroidism and reports that she has been feeling not so well and continued to have a cough the patient states she did a at home COVID test today and it was positive the patient reports that when she arrived the emergency department she feels weak and tired Related Data Home Medications ?Medication ?Instructions ?Recorded ?Confirmed ?Last Taken ?Type aspirin 81 mg tablet,delayed 81 mg PO DAILY 05/22/21 0 11/02/24 02/11/24 History release (Adult Aspirin Regimen) multivitamin-iron (hematinic) 1 tablet PO DAILY 11/02/24 02/09/24 History psyllium husk 0.52 gram capsule 1.56 g PO BID 05/22/21 11/02/24 02/11/24 History (Fiber (psyllium husk)) Allergies Allergy/AdvReac Type Severity Reaction Status Date / Time benztropine Allergy Mild Confusion Verified 11/10/24 10:27 amoxicillin Allergy Unknown Hives Verified 11/02/24 08:47 Cephalosporins Allergy Unknown Confusion Verified 11/02/24 08:47 Penicillins Allergy Unknown Hives Verified 11/02/24 08:47 promethazine Allergy Unknown Confusion Verified 11/02/24 08:47 sulfanilamide Allergy Unknown Hives Verified 11/02/24 08:47 Review of Systems 2 Review of Systems: A 10 system review of systems was completed on the patient and is negative except for what is stated in the HPI. Nursing and ancillary documentation was reviewed. PMFSH Past Medical History Medical History Constipation LLQ pain History of diverticulitis (2018) Anxiety Hypertension History of depression History of atrial fibrillation Surgical History Surgical History History of mandibular surgery Family History Family History Sibling Diabetes mellitus Family history of lung cancer Father Cerebrovascular accident Mother Family history of chronic obstructive pulmonary disease Family history of congestive heart failure Social History Social History Smoking status: Former smoker Tobacco type: cigarettes Second hand tobacco smoke exposure: Yes Smoking end date: 03/24/92 Alcohol intake: never Substance use: never Substance use type: does not use Living arrangements: with family Occupation/Education: retired Gender identity (if verbalized by the patient): Female Sexual Orientation (if Verbalized by the Patient): Straight or Heterosexual Spiritual care concerns: No Agree to blood products: Yes Exam 2 Narrative: GENERAL: Well-appearing, well-nourished, and in no acute distress. HEAD: Normocephalic, atraumatic. EYES: PERRLA and EOMI. ENT: Nares clear, no rhinorrhea or epistaxis. Mucous membranes moist. NECK: Supple. CHEST: Clear to auscultation. No respiratory distress. HEART: Regular rate and rhythm. No murmur heard. Normal peripheral pulses. ABDOMEN: Soft, nontender, nondistended, normal active bowel sounds. EXTREMITIES: Normal range of motion. No edema. SKIN: Warm, dry, no rash. NEURO: No focal deficits. Alert and oriented x3. PSYCH: Normal mood and affect. Course Vital Signs Vital signs: Vital Signs Pulse Rate 86 11/10/24 10:08 Respiratory Rate 18 11/10/24 10:08 Blood Pressure 82/44 L 11/10/24 10:08 Pulse Oximetry 84 L 11/10/24 10:08 Oxygen Delivery Room Air 11/10/24 10:08 Temperature 36.4 C L 11/10/24 10:15 Pulse Rate 80 11/10/24 12:31 Respiratory Rate 20 11/10/24 12:31 Blood Pressure 127/60 11/10/24 12:31 Pulse Oximetry 94 11/10/24 12:31 Oxygen Delivery Nasal Cannula 11/10/24 11:30 Oxygen Flow Rate 2 11/10/24 11:30 Medical Decision Making [facility] Narrative Medical decision making narrative: differential diagnosis includes pneumonia, COVID-19, upper respiratory infection, ACS, electrolyte abnormality, UTI patient responded IV fluids chest x-ray showed evidence of pneumonia the patient was started on Levaquin as she has an allergy to cephalosporins patient's COVID test was negative here patient will be treated for possible COVID Vital Signs Vital Signs: Vital Signs Pulse Rate 86 11/10/24 10:08 Respiratory Rate 18 11/10/24 10:08 Blood Pressure 82/44 L 11/10/24 10:08 Pulse Oximetry 84 L 11/10/24 10:08 Oxygen Delivery Room Air 11/10/24 10:08 Temperature 36.4 C L 11/10/24 10:15 Pulse Rate 80 11/10/24 12:31 Respiratory Rate 20 11/10/24 12:31 Blood Pressure 127/60 11/10/24 12:31 Pulse Oximetry 94 11/10/24 12:31 Oxygen Delivery Nasal Cannula 11/10/24 11:30 Oxygen Flow Rate 2 11/10/24 11:30 Lab Data 11/10/24 10:26 11/10/24 10:26 Labs: Lab Results 11/10/24 11/10/24 Range/Units 10:26 11:04 WBC 3.4 L (4.5-10.0) K/mm3 RBC 4.82 (4.2-5.4) M/mm3 Hgb 13.8 (12.0-15.0) g/dL Hct 42.4 (37.0-47.0) % MCV 88.0 (80-100) fl MCH 28.6 (26-34) pg MCHC 32.5 (32-36) g/dl RDW 13.3 (11.5-14.5) % Plt Count 277 (150-375) k/mm3 MPV 9.7 (7.4-10.4) fl Immature Gran % (Auto) 0.6 H (0-0.5) % Neut % (Auto) 45.7 (45.5-73.1) % Lymph % (Auto) 38.1 (18.3-44.2) % [place] % (Auto) 9.7 H (2.6-8.5) % Eos % (Auto) 5.6 H (0-4.4) % Baso % (Auto) 0.3 (0.2-1.2) % Lymph # (Auto) 1.30 (0.9-3.2) K/mm3 [place] # (Auto) 0.3 (0.1-0.6) K/mm3 Eos # (Auto) 0.2 (0-0.3) K/mm3 Baso # (Auto) 0.0 (0.0-0.1) K/mm3 Abs Immat Gran (auto) 0.02 (0.00-0.031) K/mm3 Absolute Neuts (auto) 1.6 (1.3-6.7) K/mm3 Absolute Nucleated RBC 0.000 (0.0-0.012) K/mm3 Nucleated RBC % 0.0 (0.0-0.2) % PT 14.7 (11.1-14.7) Seconds INR 1.1 APTT 30.0 (22.3-36.8) Seconds Sodium 138 (137-145) mmol/L Potassium 3.4 (3.4-5.0) mmol/L Chloride 109 H (98-107) mmol/L Carbon Dioxide 23 (22-30) mmol/L Anion Gap 6 (4-12) mmol/L BUN 8 D (7-17) mg/dL Creatinine 1.10 H (0.7-1.0) mg/dL Estim Creat Clear Calc 45 ml/min Estimated GFR 49 L (59 - ) Glucose 134 H (65-110) mg/dL Lactic Acid 1.7 (0.7-2.0) mmol/L Calcium 9.3 (8.4-10.2) mg/dL Magnesium 2.2 (1.6-2.3) mg/dL Total Bilirubin 1.2 (0.2-1.3) mg/dL AST 47 H (14-36) U/L ALT 35 (6-35) U/L Alkaline Phosphatase 80 (38-126) U/L Troponin I < 0.012 (0.000-0.034) ng/mL NT-Pro-B Natriuret Pep 1350 H (19.9-100) pg/mL Total Protein 6.8 (6.3-8.2) g/dL Albumin 3.6 (3.5-5.1) g/dL Procalcitonin 0.1 ng/mL Urine Color Yellow (Yellow) Urine Appearance Cloudy H (Clear) Urine pH 7.5 (5.0-9.0) Ur Specific [place] 1.014 (1.001-1.035) Urine Protein 3+ H (Negative) mg/dL Urine Glucose (UA) Negative (Negative) mg/dL Urine Ketones Trace H (Negative) mg/dL Ur Blood (Man) Negative (Negative) Urine Nitrate Negative (Negative) Urine Bilirubin Negative (Negative) Urine Urobilinogen 0.2 (<2.0) mg/dL Add Ur Microanalysis Reviewed Leukocyte Esterase Rfl Negative (Negative) RENA/UL Urine RBC 0-2 (0-2) /hpf Urine WBC 11-20 H (0-3) /hpf Ur Squamous Epith Cells None seen (Few) /hpf Urine Bacteria None seen /hpf Urine Casts >20 Influenza A (RT-PCR) Negative (Negative) Influenza B (RT-PCR) Negative (Negative) RSV (RT-PCR) Negative (Negative) SARS-CoV-2 RNA (RT-PCR) Negative (Negative) Discharge Plan Discharge Clinical Impression: Pneumonia Patient Disposition: Still a Patient Condition: Stable Patient Language: Tajik Prescriptions: No Action aspirin [Adult Aspirin Regimen] 81 mg tablet,delayed release (DR/EC) 81 mg PO DAILY multivitamin-iron (hematinic) Tablet 1 tablet PO DAILY psyllium husk [Fiber (psyllium husk)] 0.52 gram capsule 1.56 g PO BID triamcinolone acetonide 0.1 % cream 1 applic topical BID Qty: 80 0RF citalopram 20 mg tablet 20 mg PO DAILY Qty: 90 3RF atorvastatin 20 mg tablet 20 mg PO DAILY Qty: 90 3RF alprazolam 0.5 mg tablet 1 mg PO QHS PRN (Reason: anxiety) Qty: 90 4RF Rx Instructions: Take 2 tablets at bedtime as needed for sleep. metoprolol succinate 50 mg tablet extended release 24 hr See Rx Instructions .ROUTE .COMPLEX Qty: 90 0RF Dose Instruction: Take 1 tablet by mouth once daily Rx Instructions: Take 1 tablet by mouth once daily Follow-up/Referrals: Patrick Rubio MD [Primary Care Provider, Family Practice] Time of Disposition: 12:48
[2024-11-10] MEDS: SODIUM CHLORIDE 0.9% IV 1,000 ML 999 ML IV CONT ×2 (10:33)
[2024-11-10 10:44] LABS: Hematocrit 42.4 % (37.0-47.0); Hemoglobin 13.8 g/dL (12.0-15.0); Immature Granulocyte Percent A 0.6 % (0-0.5); Lymphocytes Absolute Auto 1.30 K/mm3 (0.9-3.2); Mean Corpuscular HGB Conc 32.5 g/dl (32-36); Mean Corpuscular Hemoglobin 28.6 pg (26-34); Mean Corpuscular Volume 88.0 fl (80-100); Nucleated Red Blood Cells Absolute Auto 0.000 K/mm3 (0.0-0.012); Nucleated Red Blood Cells Perc 0.0 % (0.0-0.2); Platelet Count Result 277 k/mm3 (150-375); Red Blood Count 4.82 M/mm3 (4.2-5.4); White Blood Count 3.4 K/mm3 (4.5-10.0)
[2024-11-10 11:07] LABS: Alanine Aminotransferase 35 U/L (6-35); Albumin Level 3.6 g/dL (3.5-5.1); Alkaline Phosphatase 80 U/L (38-126); Anion Gap 6 mmol/L (4-12); Aspartate Amino Transferase 47 U/L (14-36); Bilirubin,Total 1.2 mg/dL (0.2-1.3); Blood Urea Nitrogen 8 mg/dL (7-17); Calcium 9.3 mg/dL (8.4-10.2); Carbon Dioxide 23 mmol/L (22-30); Chloride 109 mmol/L (98-107); Estimated CRCL calculation 45 ml/min; Estimated Glomerular Filt Rate 49; Glucose 134 mg/dL (65-110); Magnesium 2.2 mg/dL (1.6-2.3); Potassium 3.4 mmol/L (3.4-5.0); Sodium 138 mmol/L (137-145); Total Protein 6.8 g/dL (6.3-8.2)
[2024-11-10 11:09] LABS: INR 1.1; Prothrombin Time 14.7 Seconds (11.1-14.7)
[2024-11-10 11:10] LABS: Partial Thromboplastin Time 30.0 Seconds (22.3-36.8)
[2024-11-10 11:12] LABS: NT Pro B Type Natriuretic Pept 1350 pg/mL (19.9-100); Troponin I < 0.012 ng/mL (0.000-0.034)
[2024-11-10 11:18] LABS: Procalcitonin 0.1 ng/mL
[2024-11-10 11:22] LABS: Influenza A QL RT-PCR Negative (Negative); Influenza B QL RT-PCR Negative (Negative); RSV RNA, RT-PCR Negative (Negative); SARS-CoV-2 RNA PCR Negative (Negative)
[2024-11-10] MEDS: levoFLOXacin 750 MG/D5W 150 ML 750 MG/150 ML BAG 100 MG IVPB (11:25)
[2024-11-10 11:29] LABS: Add Urine Microscopic? YES; Appearance Urine Cloudy (Clear); Glucose Urine UA Negative (Negative); Leukocyte Esterase Ur Negative LEU/UL (Negative); Need Manual Microscopic Reviewed; Nitrate Urine Negative (Negative); Non Pathogenic Casts >20; Specific Grav Ur 1.014 (1.001-1.035)
--- NOTE | 2024-11-10 13:11 | PM.IMHP ---
H&P: HPI History of Present Illness Date/Time: 11/10/24 13:11 Chief Complaint: Cough, +COVID Narrative: 74 y/o F with PMH of atrial fibrillation, hypertension, depression, anxiety presents here with cough and positive home COVID test. The patient presents here from home on 11/10 for further evaluation of shortness of breath and ongoing cough. She reports she initially started with a nonproductive cough for the past X1.5 months. Cough has become more coarse but has remained dry in the last 2 weeks. Patient then began experiencing lethargy, generalized shakes and generalized weakness for the past week. She was evaluated by her PCP and her thyroid was evaluated which was normal. Patient the developed mild shortness of breath around 15 which continued to progress over the weekend. Yesterday she reports she was so winded that she could hardly make her bed and her cough had worsened. These symptoms prompted her to take a home COVID test. She reports a positive home COVID test on 11/10. She additionally reports accompanying diaphoresis and feeling hot with activity and tinnitus. She denies fever, chills, body aches, nausea, vomiting, diarrhea, or chest pain. Initial VS at presentation: 97.5? F, HR 86, R 18, 82/44, and 84% on RA. ED workup showed: WBC 3.4, no anemia, normal coags, no significant electrolyte derangements, creatinine 1.1 and GFR 49, glucose 134, BNP 1 350, and UA showed a cloudy appearance with 3+ protein/trace ketones/11-20 WBC. Viral PCR negative. CXR showed bilateral pulmonary consolidations which may represent aspiration pneumonia in the appropriate clinical setting. Review of Systems Review of Systems: All systems reviewed & are unremarkable except as noted in HPI and below [facility] Past Medical History Medical History HLD (hyperlipidemia) Depression Atrial fibrillation History of diverticulitis (2018) Anxiety Hypertension Surgical History Surgical History History of mandibular surgery Family History Family History Sibling Diabetes mellitus Family history of lung cancer Father Cerebrovascular accident Mother Family history of chronic obstructive pulmonary disease Family history of congestive heart failure Social History Social History Smoking status: Former smoker Second hand tobacco smoke exposure: Yes Alcohol intake: never Substance use: never Substance use type: does not use Lack of Transportation: No Lack of Food: Never True Current Housing: I Have Housing Concerned About Future Housing: No Difficulty Paying Gas/Electric Bills: No Difficulty Paying for Meds: No Currently Unemployed: No Education: High School Diploma/GED Difficulty w/ Childcare or Family Care: No Living arrangements: with family Occupation/Education: retired Gender identity (if verbalized by the patient): Female Sexual Orientation (if Verbalized by the Patient): Straight or Heterosexual Spiritual care concerns: No Agree to blood products: Yes Meds Home Medications and Allergies Home Medications ?Medication ?Instructions ?Recorded ?Confirmed ?Type aspirin 81 mg tablet,delayed 81 mg PO DAILY 05/22/21 11/10/24 History release (Adult Aspirin Regimen) multivitamin-iron (hematinic) 1 tablet PO DAILY 05/22/21 11/10/24 History psyllium husk 0.52 gram capsule 1.56 g PO BID 05/22/21 11/10/24 History (Fiber (psyllium husk)) citalopram 20 mg tablet 20 mg PO DAILY #90 tabs 09/03/23 11/10/24 Rx atorvastatin 20 mg tablet 20 mg PO DAILY #90 tabs 06/06/24 11/10/24 Rx alprazolam 0.5 mg tablet 1 mg (2 x 0.5 mg) PO QHS PRN 08/16/24 11/10/24 Rx anxiety #90 tabs triamcinolone acetonide 0.1 % 1 applic topical BID #80 grams 11/02/24 11/10/24 Rx topical cream metoprolol succinate 50 mg See Rx Instructions .Route 11/10/24 11/10/24 Rx tablet,extended release 24 hr .COMPLEX #90 tabs Allergies Allergy/AdvReac Type Severity Reaction Status Date / Time benztropine Allergy Mild Confusion Verified 11/10/24 15:24 amoxicillin Allergy Unknown Hives Verified 11/10/24 15:24 Cephalosporins Allergy Unknown Confusion Verified 11/10/24 15:24 Penicillins Allergy Unknown Hives Verified 11/10/24 15:24 promethazine Allergy Unknown Confusion Verified 11/10/24 15:24 sulfanilamide Allergy Unknown Hives Verified 11/10/24 15:24 Vital Signs Vital Signs - 24 hr 11/10/24 10:08 11/10/24 10:13 11/10/24 10:15 Temperature 97.5 F L Pulse Rate 86 Respiratory Rate 18 Blood Pressure 82/44 L Pulse Oximetry 84 L 97 Oxygen Delivery Room Air Nasal Cannula Oxygen Flow Rate 6 11/10/24 10:21 11/10/24 10:41 11/10/24 10:44 Temperature Pulse Rate 79 78 Respiratory Rate 13 16 Blood Pressure 102/49 L Pulse Oximetry 98 94 94 Oxygen Delivery Nasal Cannula Oxygen Flow Rate 4 11/10/24 10:45 11/10/24 10:46 11/10/24 11:06 Temperature Pulse Rate 78 77 79 Respiratory Rate 18 17 16 Blood Pressure 108/65 126/62 Pulse Oximetry 94 96 98 Oxygen Delivery Oxygen Flow Rate 11/10/24 11:08 11/10/24 11:15 11/10/24 11:16 Temperature Pulse Rate 80 80 79 Respiratory Rate 16 17 15 Blood Pressure 127/52 L Pulse Oximetry 98 99 100 Oxygen Delivery Oxygen Flow Rate 11/10/24 11:30 11/10/24 11:30 11/10/24 11:31 Temperature Pulse Rate 77 77 Respiratory Rate 18 18 Blood Pressure 126/53 L Pulse Oximetry 98 98 99 Oxygen Delivery Nasal Cannula Oxygen Flow Rate 2 11/10/24 11:45 11/10/24 11:46 11/10/24 12:00 Temperature Pulse Rate 79 78 77 Respiratory Rate 19 20 15 Blood Pressure 121/57 L Pulse Oximetry 96 96 96 Oxygen Delivery Oxygen Flow Rate 11/10/24 12:01 11/10/24 12:15 11/10/24 12:16 Temperature Pulse Rate 79 76 77 Respiratory Rate 18 17 21 H Blood Pressure 119/56 L 122/52 L Pulse Oximetry 95 95 95 Oxygen Delivery Oxygen Flow Rate 11/10/24 12:30 11/10/24 12:31 Temperature Pulse Rate 78 80 Respiratory Rate 16 20 Blood Pressure 127/60 Pulse Oximetry 95 94 Oxygen Delivery Oxygen Flow Rate Exam Const: General: comfortable and no acute distress Other: , female, elderly, nontoxic appearance HENMT: Face/Nose/Sinus: Normal nares present Mouth: Yes moist mucous membranes Eyes: General: appearance normal, both eyes and all related structures Sclera: sclerae normal Pupils: Equal, round and reactive pupils present EOM: EOMs intact bilaterally Resp: Effort & Inspection: normal respiratory effort Auscultation: clear to auscultation bilaterally Other: Nasal cannula place, tolerating well. Cardio: Rate: regular rate Rhythm: regular rhythm Other: S1-S2 present without murmur, rub, ectopy GI: Other: Abdomen soft, nondistended, nontender. Normoactive bowel sounds in all quadrants. Skin: General skin exam: normal color and no rashes or lesions noted Wounds: no wounds Neuro: Speech: normal speech Motor exam (neuro): 5/5 motor strength present throughout Sensory Exam: normal sensation Other: A&O x4 Extrem: General: normal to inspection Psych: Mental Status: mental status grossly normal Affect: normal affect Other: Good insight and judgment, pleasant H&P: Results Labs Labs: Short CBC 11/10/24 Range/Units 10:26 WBC 3.4 L (4.5-10.0) K/mm3 Hgb 13.8 (12.0-15.0) g/dL Hct 42.4 (37.0-47.0) % Plt Count 277 (150-375) k/mm3 BMP 11/10/24 10:26 Sodium 138 Potassium 3.4 Chloride 109 H Carbon Dioxide 23 BUN 8 D Creatinine 1.10 H Glucose 134 H Calcium 9.3 Cardiac Enzymes 11/10/24 Range/Units 10:26 Troponin I < 0.012 (0.000-0.034) ng/mL Liver Function 11/10/24 Range/Units 10:26 Total Bilirubin 1.2 (0.2-1.3) mg/dL AST 47 H (14-36) U/L ALT 35 (6-35) U/L Alkaline Phosphatase 80 (38-126) U/L Albumin 3.6 (3.5-5.1) g/dL Urine 11/10/24 Range/Units 11:04 Urine Color Yellow (Yellow) Urine Appearance Cloudy H (Clear) Urine pH 7.5 (5.0-9.0) Ur Specific [place] 1.014 (1.001-1.035) Urine Protein 3+ H (Negative) mg/dL Urine Glucose (UA) Negative (Negative) mg/dL Assessment and Plan Assessment and plan (1) Sepsis: Qualifiers: Acute respiratory failure type: with hypoxia Sepsis acute organ dysfunction status: with acute organ dysfunction Sepsis type: sepsis due to unspecified organism Severe sepsis acute organ dysfunction type: acute respiratory failure Severe sepsis shock status: without septic shock Qualified Code(s): A41.9 - Sepsis, unspecified organism; R65.20 - Severe sepsis without septic shock; J96.01 - Acute respiratory failure with hypoxia Code(s): A41.9 - Sepsis, unspecified organism Status: Acute Assessment and Plan: - WBC 3.4, patient was hypotensive (82/44) and hypoxic (94% on RA) upon arrival. - lactic 1.7, checking procalcitonin - started on Levaquin and Remdesivir - blood cultures obtained on 11/10, follow Patient given 2L bolus in the ED due to initial pressure of 82/44 -> 127/60. (2) Pneumonia: Qualifiers: Pneumonia type: due to COVID-19 virus Qualified Code(s): U07.1 - COVID-19; J12.82 - Pneumonia due to coronavirus disease 2019 Code(s): J18.9 - Pneumonia, unspecified organism Status: Acute Assessment and Plan: - CXR: Bilateral pulmonary consolidations may represent aspiration pneumonia in appropriate clinical settings. Clinical correlation si recommended. Short-term follow-up chest radiograph is recommended after appropriate clinical therapy to document stability and/or resolution. - risk factors and complicating factors: COVID+ - started on CAP tx: Levaquin - MRSA PCR and sputum culture (if obtainable) - Viral PCR negative, however had home COVID test that was positive on 11/10 - supportive care: Tylenol, Mucinex, Tessalon Perles, DuoNebs - +O2 requirement: 84% on room air upon arrival on 11/10, now requiring 2L NC. Wean as tolerated, maintain O2 sat greater than 92%. (3) COVID-19: Code(s): U07.1 - COVID-19 Status: Acute Assessment and Plan: - symptom onset: Cough ongoing for months, however newly short of breath and cough has worsened within the last 4-5 days. - tested positive for COVID on: 11/10, however negative in the ED but symptomatic - CXR showing bilateral pneumonia - check ESR - Remdesivir 200 mg IVPB x1 then 100 mg x4 for 5 total doses. - +hypoxia -> add dexamethasone 6 mg x10 days or until d/c. - prophylactic anticoagulation heparin 5,000 units SQ bid - supportive care - droplet precautions - monitor VS/O2 (4) Hypertension: Qualifiers: Hypertension type: primary hypertension Qualified Code(s): I10 - Essential (primary) hypertension Code(s): I10 - Essential (primary) hypertension Status: Chronic Assessment and Plan: - chronic, hypotensive at arrival. Responded well to IV fluids. - continue metoprolol ER 50 mg daily as she has a concurrent history of AFib - monitor Plan Diet: heart healthy GI Prophylaxis: PPI IV DVT Prophylaxis: heparin SQ IV fluids: 2L bolus -> 125 mL/hr x1L Lines/Tubes: peripheral IV Code Status: full code Quality VTE Prophylaxis VTE prophylaxis: pharmacologic ordered Hospitalist MIPS Advance Care Plan I have confirmed that the patient's Advanced Care Plan is present, code status is documented, or surrogate decision maker is listed in patient medical record.: Yes Medication Reconciliation I have utilized all available resources to obtain, update and review the patients current medications (includes all prescriptions, OTC, herbals, cannabis, and nutritional supplements).: Yes
[2024-11-10 14:12] LABS: Troponin I < 0.012 ng/mL (0.000-0.034)
--- NOTE | 2024-11-10 14:29 | PC.NURSE ---
Awaiting on pharmacy to bring remdesivir who states they are making it now
--- NOTE | 2024-11-10 15:11 | PC.NURSE ---
Pharmacy states sent remdesivir to 3rd floor instead
--- NOTE | 2024-11-10 15:15 | ADMGEN ---
This patient, Jordana Sim, was admitted to [facility] Surg Room 315-02. Patient/family oriented to hospital policies and general routines including ID bracelet, bed and alarms, visiting hours, pain management, procedures, bathroom and other care routines, personal items, smoking policy, room service/diet, and visiting hours. Information on how to activate the Rapid Response Team has been discussed. Patient/Family are encouraged to report perceived risks to care and to ask questions if they do not understand what they are told or what they should do.
[2024-11-10] MEDS: REMDESIVIR 200 MG/NS 250 ML 200 MG/250 ML BAG 250 MG IVPB (15:34)
[2024-11-10] MEDS: guaiFENesin 12 HR 600 MG TABCR PO ×2 (15:45→21:05)
[2024-11-10 16:54] LABS: MRSA (PCR) NOT DETECTED (NOT DETECTE)
--- NOTE | 2024-11-10 16:55 | PC.NURSE ---
I spoke with Lucy Lockett to clarify isolation status due to patient testing positive at home today for COVID and negative per PCR testing in ED. Because patient is symptomatic with cough, congestion, and hypoxia we will isolate and continue medications as ordered.
[2024-11-10] MEDS: LACTATED RINGERS 1,000 ML 125 ML IV CONT (16:59)
[2024-11-10] MEDS: TRIAMCINOLONE ACET 0.1% CREAM 15 GM TUBE 1 APPLIC TOPICAL (21:58)
[2024-11-11] VITALS (9 sets, daily range): BP systolic 119–129; BP diastolic 55–65; PULSE 50–64; RESP 16–20; TEMP 36.3–36.8; O2SAT 92–96
[2024-11-11 06:12] LABS: Hematocrit 38.3 % (37.0-47.0); Hemoglobin 12.6 g/dL (12.0-15.0); Immature Granulocyte Percent A 0.7 % (0-0.5); Lymphocytes Absolute Auto 0.50 K/mm3 (0.9-3.2); Mean Corpuscular HGB Conc 32.9 g/dl (32-36); Mean Corpuscular Hemoglobin 29.3 pg (26-34); Mean Corpuscular Volume 89.1 fl (80-100); Nucleated Red Blood Cells Absolute Auto 0.000 K/mm3 (0.0-0.012); Nucleated Red Blood Cells Perc 0.0 % (0.0-0.2); Platelet Count Result 209 k/mm3 (150-375); Red Blood Count 4.30 M/mm3 (4.2-5.4); White Blood Count 5.5 K/mm3 (4.5-10.0)
[2024-11-11 06:39] LABS: Alanine Aminotransferase 30 U/L (6-35); Albumin Level 3.2 g/dL (3.5-5.1); Alkaline Phosphatase 77 U/L (38-126); Anion Gap 6 mmol/L (4-12); Aspartate Amino Transferase 44 U/L (14-36); Bilirubin,Total 0.7 mg/dL (0.2-1.3); Blood Urea Nitrogen 13 mg/dL (7-17); Calcium 8.8 mg/dL (8.4-10.2); Carbon Dioxide 21 mmol/L (22-30); Chloride 110 mmol/L (98-107); Estimated CRCL calculation 57 ml/min; Estimated Glomerular Filt Rate > 60; Glucose 134 mg/dL (65-110); Magnesium 2.2 mg/dL (1.6-2.3); Potassium 4.3 mmol/L (3.4-5.0); Sodium 137 mmol/L (137-145); Total Protein 6.1 g/dL (6.3-8.2)
--- NOTE | 2024-11-11 07:50 | PM.IMPN ---
Progress Note: A&P Assessment and Plan (1) Acute respiratory failure with hypoxia: Code(s): J96.01 - Acute respiratory failure with hypoxia Status: Acute Assessment and Plan: - symptom onset: Cough ongoing for months, however newly short of breath and cough has worsened within the last 4-5 days. - Oxygen supplementation: Weaned to room air today, keep saturations > 90 - Suspected cause: covid and pneumonia - CXR: Bilateral pulmonary consolidations may represent aspiration pneumonia Resolved. Saturations stable on room air. (2) Sepsis: Qualifiers: Acute respiratory failure type: with hypoxia Sepsis acute organ dysfunction status: with acute organ dysfunction Sepsis type: sepsis due to unspecified organism Severe sepsis acute organ dysfunction type: acute respiratory failure Severe sepsis shock status: without septic shock Qualified Code(s): A41.9 - Sepsis, unspecified organism; R65.20 - Severe sepsis without septic shock; J96.01 - Acute respiratory failure with hypoxia Code(s): A41.9 - Sepsis, unspecified organism Status: Acute Assessment and Plan: Meets SIRS criteria: WBC 3.4, patient was hypotensive (82/44) and hypoxic (94% on RA) upon arrival. - lactic acid: lactic 1.7, procal WNL - Given sepsis bolus x2L with improvement to BP - suspected source: pneumonia and covid - blood cultures drawn on 11/10: pending - UA nonconcerning for infection - CXR: Bilateral pulmonary consolidations may represent aspiration pneumonia - started on Levaquin and Remdesivir WBC WNL. Remains hemodynamically stable. (3) Pneumonia: Qualifiers: Pneumonia type: due to COVID-19 virus Qualified Code(s): U07.1 - COVID-19; J12.82 - Pneumonia due to coronavirus disease 2019 Code(s): J18.9 - Pneumonia, unspecified organism Status: Acute Assessment and Plan: - CXR: Bilateral pulmonary consolidations may represent aspiration pneumonia - risk factors and complicating factors: COVID+ - started on CAP tx: Levaquin - MRSA PCR negative and sputum culture ordered - Speech therapy consulted for bedside eval given aspiration concern and patient noting chronic coughing episodes with meals - Viral PCR negative, however had home COVID test that was positive on 11/10 - supportive care: Tylenol, Mucinex, Tessalon Perles, DuoNebs - +O2 requirement: 84% on room air upon arrival on 11/10, requiring 2L NC. Wean back to room air with stable saturation. (4) COVID-19: Code(s): U07.1 - COVID-19 Status: Acute Assessment and Plan: - symptom onset: Cough ongoing for months, however newly short of breath and cough has worsened within the last 4-5 days. - tested positive for COVID on: 11/10, however negative in the ED but symptomatic - CXR showing bilateral pneumonia - Left lower extremity edema, dopplers ordered - Pt is a candidate for Remdesivir and Dexamethasone, continue treatment according to suggested guidelines. Remdesivir 200 mg IV x1, then 100 mg IV x4 days, dexamethasone 6 mg IV daily x 10 days, or until discharge - Place in [place] [id number] isolation precautions, cardiac monitoring, and continuous pulse ox - Monitor serum electrolytes, CRP, Lactic acid, troponin, CBC, WBC, temperature curve and follow cultures - prophylactic anticoagulation heparin 5,000 units SQ bid (5) Hypertension: Qualifiers: Hypertension type: primary hypertension Qualified Code(s): I10 - Essential (primary) hypertension Code(s): I10 - Essential (primary) hypertension Status: Chronic Assessment and Plan: - chronic, hypotensive at arrival. Responded well to IV fluids. - continue metoprolol ER 50 mg daily as she has a concurrent history of AFib - blood pressures remain stable, continue to monitor (6) Atrial fibrillation: Code(s): I48.91 - Unspecified atrial fibrillation Status: Acute Assessment and Plan: - EKG: sinus rhythm, rate controlled - Current home medication: metoprolol 50 mg daily - Not on anticoagulation Time Spent With Patient Time with patient: 25 - 35 minutes Subjective Date/time seen: 11/11/24 07:50 Interval history: 74 y/o F with PMH of atrial fibrillation, hypertension, depression, anxiety presents to the hospital for shortness of breath with associated cough and positive home COVID test. Patient is pleasant lying comfortably in bed with family at bedside. She was able to be weaned back to room air with stable saturations. She endorses slight shortness of breath but much improved from admission. She states she has had a chronic cough for a few months now. She states she does have increased coughing episodes with meals and drinking. Speech consulted. Patient has no other complaints denying chest pain, palpitations, nausea/vomiting and abdominal pain. Review of Systems Review of Systems: All systems reviewed & are unremarkable except as noted in HPI and below Exam Narrative: AF HR 61 RR 20 SPO2 96 BP 120/55 General: female in no acute respiratory distress who is nontoxic appearing, lying semi recumbent in bed. HEENT: Normocephalic. Atraumatic. Extraocular movement intact. Sclera clear and anicteric. No facial asymmetry. Chest: Lungs are course to the bases on auscultation bilaterally to the bases, R>L. No wheezes. CV: Heart was regular rate and rhythm. Abd: Abdomen was soft. Nontender. Nondistended. Positive bowel sounds. Ext: No clubbing, cyanosis, or edema. DP pulses bilaterally. Neuro: Patient is alert and oriented x3. Speech is clear. Objective Data Vital Signs Vital Signs: Vital Signs - 24 hr 11/10/24 10:08 11/10/24 10:13 11/10/24 10:15 Temperature 97.5 F L Pulse Rate 86 Respiratory Rate 18 Blood Pressure 82/44 L Pulse Oximetry 84 L 97 Oxygen Delivery Room Air Nasal Cannula Oxygen Flow Rate 6 11/10/24 10:21 11/10/24 10:41 11/10/24 10:44 Temperature Pulse Rate 79 78 Respiratory Rate 13 16 Blood Pressure 102/49 L Pulse Oximetry 98 94 94 Oxygen Delivery Nasal Cannula Oxygen Flow Rate 4 11/10/24 10:45 11/10/24 10:46 11/10/24 11:06 Temperature Pulse Rate 78 77 79 Respiratory Rate 18 17 16 Blood Pressure 108/65 126/62 Pulse Oximetry 94 96 98 Oxygen Delivery Oxygen Flow Rate 11/10/24 11:08 11/10/24 11:15 11/10/24 11:16 Temperature Pulse Rate 80 80 79 Respiratory Rate 16 17 15 Blood Pressure 127/52 L Pulse Oximetry 98 99 100 Oxygen Delivery Oxygen Flow Rate 11/10/24 11:30 11/10/24 11:30 11/10/24 11:31 Temperature Pulse Rate 77 77 Respiratory Rate 18 18 Blood Pressure 126/53 L Pulse Oximetry 98 98 99 Oxygen Delivery Nasal Cannula Oxygen Flow Rate 2 11/10/24 11:45 11/10/24 11:46 11/10/24 12:00 Temperature Pulse Rate 79 78 77 Respiratory Rate 19 20 15 Blood Pressure 121/57 L Pulse Oximetry 96 96 96 Oxygen Delivery Oxygen Flow Rate 11/10/24 12:01 11/10/24 12:15 11/10/24 12:16 Temperature Pulse Rate 79 76 77 Respiratory Rate 18 17 21 H Blood Pressure 119/56 L 122/52 L Pulse Oximetry 95 95 95 Oxygen Delivery Oxygen Flow Rate 11/10/24 12:30 11/10/24 12:31 11/10/24 13:02 Temperature Pulse Rate 78 80 75 Respiratory Rate 16 20 18 Blood Pressure 127/60 Pulse Oximetry 95 94 95 Oxygen Delivery Oxygen Flow Rate 11/10/24 13:45 11/10/24 14:18 11/10/24 16:00 Temperature Pulse Rate 76 79 71 Respiratory Rate 19 18 Blood Pressure 116/58 L Pulse Oximetry 94 94 Oxygen Delivery Oxygen Flow Rate 11/10/24 16:46 11/10/24 20:00 11/10/24 21:47 Temperature 97.3 F L Pulse Rate 68 64 Respiratory Rate 16 Blood Pressure 124/66 Pulse Oximetry 94 95 Oxygen Delivery Nasal Cannula Oxygen Flow Rate 1 11/11/24 00:00 11/11/24 04:00 11/11/24 05:11 Temperature 97.9 F Pulse Rate 54 L 56 L 60 Respiratory Rate 18 Blood Pressure 119/55 L Pulse Oximetry 96 Oxygen Delivery Oxygen Flow Rate Intake/Output Intake/Output: Intake & Output 11/08/24 11/09/24 11/10/24 11/11/24 23:59 23:59 23:59 23:59 Intake Total 2390 300 Output Total 25 Balance 2365 300 Meds/Results Medications: Active Medications Generic Name Dose Route Start Last Admin Trade Name Freq PRN Reason Stop Dose Admin Acetaminophen 650 mg 11/10/24 13:24 Acetaminophen 325 Mg Tablet PO Q6H PRN Pain Rated 1-3 Albuterol/Ipratropium 3 ml 11/10/24 13:24 Ipratropium 0.5 Mg/Albuterol Sulfate 2.5 Mg Ampul.Neb 3 Ml INHALATION Q6H PRN Shortness Of Breath Or Wheezing Alprazolam 1 mg 11/10/24 16:49 Alprazolam (*Crx) 0.5 Mg Tablet PO QHS PRN Anxiety Aspirin 81 mg 11/11/24 09:00 Aspirin 81 Mg Enteric Tablet PO DAILY [facility] Atorvastatin Calcium 20 mg 11/11/24 09:00 Atorvastatin 20 Mg Tablet PO DAILY [facility] Benzonatate 100 mg 11/10/24 13:24 Benzonatate 100 Mg Capsule PO TID PRN Cough Citalopram Hydrobromide 20 mg 11/11/24 09:00 Citalopram Hydrobromide 20 Mg Tablet PO DAILY [facility] Dexamethasone 6 mg 11/11/24 08:00 Dexamethasone 2 Mg Tablet PO 11/19/24 08:01 DAILY@0800 [facility] Guaifenesin 600 mg 11/10/24 21:00 11/10/24 21:05 Guaifenesin 12 Hr 600 Mg Tabcr PO 600 mg Q12HR MARISABEL Administration Heparin Sodium (Porcine) 5,000 units 11/10/24 21:00 11/10/24 21:05 Heparin Sodium 5,000 Units/Ml Vial SUB-Q 5,000 units Q12HR MARISABEL Administration Levofloxacin/Dextrose 750 mg in 150 mls @ 100 mls/hr 11/12/24 09:00 Levaquin 750 Mg/D5w 150 Ml IVPB Q48H [facility] Remdesivir 100 mg in 250 mls @ 250 mls/hr 11/11/24 10:00 IVPB 11/14/24 10:59 Q24H [facility] Metoprolol Succinate 50 mg 11/11/24 09:00 Metoprolol Succinate Ext Rel 50 Mg Tabcr PO DAILY [facility] Multivitamins/Minerals 1 tab 11/11/24 09:00 Multivitamins /C Lutein (Centrum Silver) Tablet *Bkc PO DAILY [facility] Pantoprazole Sodium 40 mg 11/11/24 09:00 Pantoprazole Sodium Iv 40 Mg Vial IV PUSH QAM [facility] Psyllium Hydrophilic Mucilloid 0.5 packet 11/11/24 09:00 Psyllium Powder Packet BY MOUTH BID [facility] Triamcinolone Acetonide 1 applic 11/10/24 21:00 11/10/24 21:58 Triamcinolone Acet 0.1% Cream 15 Gm Tube TOPICAL 1 applic Q12HR MARISABEL Administration Radiology Results: ITS Impressions Chest X-Ray 11/10/24 11:02 IMPRESSION: Bilateral pulmonary consolidations may represent aspiration pneumonia in appropriate clinical settings. Clinical correlation si recommended. Short-term follow-up chest radiograph is recommended after appropriate clinical therapy to document stability and/or resolution. Labs Labs: Laboratory Results - last 24 hr 11/10/24 11/10/24 11/10/24 10:26 11:04 13:32 WBC 3.4 L RBC 4.82 Hgb 13.8 Hct 42.4 MCV 88.0 MCH 28.6 MCHC 32.5 RDW 13.3 Plt Count 277 MPV 9.7 Immature Gran % (Auto) 0.6 H Neut % (Auto) 45.7 Lymph % (Auto) 38.1 [place] % (Auto) 9.7 H Eos % (Auto) 5.6 H Baso % (Auto) 0.3 Lymph # (Auto) 1.30 [place] # (Auto) 0.3 Eos # (Auto) 0.2 Baso # (Auto) 0.0 Abs Immat Gran (auto) 0.02 Absolute Neuts (auto) 1.6 Absolute Nucleated RBC 0.000 Nucleated RBC % 0.0 ESR 42 H PT 14.7 INR 1.1 APTT 30.0 Sodium 138 Potassium 3.4 Chloride 109 H Carbon Dioxide 23 Anion Gap 6 BUN 8 D Creatinine 1.10 H Estim Creat Clear Calc 45 Estimated GFR 49 L Glucose 134 H Lactic Acid 1.7 Calcium 9.3 Magnesium 2.2 Total Bilirubin 1.2 AST 47 H ALT 35 Alkaline Phosphatase 80 Troponin I < 0.012 < 0.012 NT-Pro-B Natriuret Pep 1350 H Total Protein 6.8 Albumin 3.6 Procalcitonin 0.1 Urine Color Yellow Urine Appearance Cloudy H Urine pH 7.5 Ur Specific [place] 1.014 Urine Protein 3+ H Urine Glucose (UA) Negative Urine Ketones Trace H Ur Blood (Man) Negative Urine Nitrate Negative Urine Bilirubin Negative Urine Urobilinogen 0.2 Add Ur Microanalysis Reviewed Leukocyte Esterase Rfl Negative Urine RBC 0-2 Urine WBC 11-20 H Ur Squamous Epith Cells None seen Urine Bacteria None seen Urine Casts >20 Nasal MRSA (PCR) Influenza A (RT-PCR) Negative Influenza B (RT-PCR) Negative RSV (RT-PCR) Negative SARS-CoV-2 RNA (RT-PCR) Negative 11/10/24 11/11/24 15:38 05:24 WBC 5.5 RBC 4.30 Hgb 12.6 Hct 38.3 MCV 89.1 MCH 29.3 MCHC 32.9 RDW 12.8 Plt Count 209 MPV 10.3 Immature Gran % (Auto) 0.7 H Neut % (Auto) 86.2 H Lymph % (Auto) 9.1 L [place] % (Auto) 3.8 Eos % (Auto) 0.0 Baso % (Auto) 0.2 Lymph # (Auto) 0.50 L [place] # (Auto) 0.2 Eos # (Auto) 0.0 Baso # (Auto) 0.0 Abs Immat Gran (auto) 0.04 H Absolute Neuts (auto) 4.7 Absolute Nucleated RBC 0.000 Nucleated RBC % 0.0 ESR PT INR APTT Sodium 137 Potassium 4.3 Chloride 110 H Carbon Dioxide 21 L Anion Gap 6 BUN 13 D Creatinine 0.85 Estim Creat Clear Calc 57 Estimated GFR > 60 Glucose 134 H Lactic Acid Calcium 8.8 Magnesium 2.2 Total Bilirubin 0.7 AST 44 H ALT 30 Alkaline Phosphatase 77 Troponin I NT-Pro-B Natriuret Pep Total Protein 6.1 L Albumin 3.2 L Procalcitonin Urine Color Urine Appearance Urine pH Ur Specific [place] Urine Protein Urine Glucose (UA) Urine Ketones Ur Blood (Man) Urine Nitrate Urine Bilirubin Urine Urobilinogen Add Ur Microanalysis Leukocyte Esterase Rfl Urine RBC Urine WBC Ur Squamous Epith Cells Urine Bacteria Urine Casts Nasal MRSA (PCR) Not detected Influenza A (RT-PCR) Influenza B (RT-PCR) RSV (RT-PCR) SARS-CoV-2 RNA (RT-PCR) Quality VTE Prophylaxis VTE prophylaxis: pharmacologic ordered
[2024-11-11] MEDS: CITALOPRAM HYDROBROMIDE 20 MG TABLET PO (08:26)
[2024-11-11] MEDS: guaiFENesin 12 HR 600 MG TABCR PO ×2 (08:26→21:27)
[2024-11-11] MEDS: MULTIVITAMINS /C LUTEIN (CENTRUM SILVER) TABLET *BKC 1 TAB PO (08:26)
[2024-11-11] MEDS: ATORVASTATIN 20 MG TABLET PO (08:26)
[2024-11-11] MEDS: ASPIRIN 81 MG ENTERIC TABLET PO (08:26)
[2024-11-11] MEDS: PANTOPRAZOLE SODIUM IV 40 MG VIAL IV PUSH (08:27)
--- NOTE | 2024-11-11 09:52 | PC.NURSE ---
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
[2024-11-11] MEDS: REMDESIVIR 100 MG/NS 250 ML 100 MG/250 ML BAG 250 MG IVPB (10:52)
[2024-11-12] VITALS (11 sets, daily range): BP systolic 126–151; BP diastolic 45–94; PULSE 36–65; RESP 18; TEMP 35.7–36.6; O2SAT 90–95
--- NOTE | 2024-11-12 | ECHO_ITS ---
Patient Info Name: Jordana Sim Age: 74 years : 1950 Gender: Female Ht: 64 in Wt: 199 lbs BSA: 2.06 m2 HR: 60 bpm BP: 151 / 55 mmHg Technical Quality: Good Exam Date: 11/12/2024 11:35 AM Patient Status: I Admit Date: 11/11/2024 Exam Type: CA echo doppler color flow Complete two-dimensional, color flow and Doppler transthoracic echocardiogram is performed. Staff Referring Physician: Arianna Diamond Silo Erector: Estela Carpenter Attending Provider: Calvin Stearns MD Summary 1. Complete two-dimensional, color flow and Doppler transthoracic echocardiogram is performed. 2. Left ventricular chamber dimension is normal. 3. Left ventricular systolic function is normal, estimated at 60-65. 4. The left ventricular diastolic function is normal. 5. E/e' 7 is not elevated. 6. There is trace tricuspid valve regurgitation. 7. No pulmonary hypertension, estimated pulmonary arterial systolic pressure is 28 mmHg. Left Ventricle E/e' 7 is not elevated. Left ventricular chamber dimension is normal. Left ventricular systolic function is normal, estimated at 60-65. The left ventricular diastolic function is normal. Right Ventricle Right ventricular chamber dimension is normal. Right ventricular systolic function is normal and with normal TAPSE 2.5 cm. Left Atria Left atrial chamber dimension is normal. Right Atria Right atrial chamber dimension is normal. Aortic Valve The aortic valve is trileaflet. There is no aortic valve stenosis. There is no aortic valve regurgitation. Pulmonic Valve There is no pulmonic regurgitation. Mitral Valve There is no mitral valve stenosis. There is no mitral valve regurgitation. Tricuspid Valve There is trace tricuspid valve regurgitation. No pulmonary hypertension, estimated pulmonary arterial systolic pressure is 28 mmHg. Pericardium/Pleural There is no pericardial effusion. Inferior Vena Cava Normal inferior vena cava with >50% collapse upon inspiration consistent with normal right atrial pressure, 5 mmHg. Aorta The aortic root size at the sinus of Valsalva is normal. Left Ventricular Outflow Tract Name Value Normal LVOT 2D LVOT Diameter 1.8 cm LVOT Doppler LVOT Peak Velocity 124 cm/s LVOT Peak Gradient 6 mmHg LVOT Mean Gradient 3 mmHg LVOT VTI 33 cm LVOT Stroke Volume 86 ml LVOT CO 5.2 l/min LVOT CI 2.5 l/min/m2 Pulmonic Valve Name Value Normal RVOT Doppler RVOT Peak Velocity 56 cm/s RVOT Peak Gradient 1 mmHg PV Doppler PV Peak Velocity 101 cm/s PV Peak Gradient 4 mmHg Mitral Valve Name Value Normal MV Diastolic Function MV E Peak Velocity 86 cm/s MV A Peak Velocity 86 cm/s MV E/A 1.0 MV Decel Time (PW) 220 ms MV Annular TDI MV E/e' (Septal) 8.0 MV E/e' (Lateral) 7.6 MV E/e' (Average) 7.8 Tricuspid Valve Name Value Normal TV Regurgitation Doppler TR Peak Velocity 238 cm/s TR Peak Gradient 23 mmHg Estimated PAP/RSVP RA Pressure 5 mmHg <=5 PA Systolic Pressure 28 mmHg <36 RV Systolic Pressure 28 mmHg <36 Aortic Valve Name Value Normal AV Doppler AV Peak Velocity 169 cm/s AV Peak Gradient 11 mmHg AV Area (Cont Eq Sb) 1.9 cm2 AV DI (Sb) 0.73 AV Regurgitation 2D LVOT Area 2.6 cm2 Ventricles Name Value Normal LV Dimensions 2D/MM IVS Diastolic Thickness (2D) 0.8 cm 0.6-1.0 LVID Diastole (2D) 4.2 cm 3.8-5.2 LVIW Diastolic Thickness (2D) 0.9 cm 0.6-0.9 LVID Systole (2D) 3.1 cm 2.2-3.5 LVOT Diameter 1.8 cm LV Mass (2D Cubed) 106.87 g 67.00-162.00 LV Mass Index (2D Cubed) 52 g/m2 43-95 Relative Wall Thickness (2D) 0.42 <=0.42 LV Fractional Shortening/Ejection Fraction 2D/MM LV Fractional Shortening (2D) 26 % 27-45 LV EF (2D Teichholz) 52 % LV Diastolic Volume (4C MOD) 81 ml LV EF (4C MOD) 61 % LV Diastolic Volume (2C MOD) 78 ml LV EF (2C MOD) 63 % LV Diastolic Volume (BP MOD) 80 ml 46-106 LV Diastolic Volume Index (BP MOD) 39 ml/m2 29-61 LV Systolic Volume (BP MOD) 33 ml 14-42 LV Systolic Volume Index (BP MOD) 16 ml/m2 8-24 LV EF (BP MOD) 59 % 54-74 LV Diastolic Length (4C) 7.2 cm LV Systolic Length (4C) 6.7 cm LV Stroke Volume (4C MOD) 49 ml Atria Name Value Normal LA Dimensions LA Volume (4C A-L) 39 ml LA Volume (BP A-L) 44 ml RA Dimensions RA Systolic Major Piercy Length (4C) 5.0 cm 2.2-2.8 RA Area (4C) 15.7 cm2 <=18.0 Report Signatures
--- NOTE | 2024-11-12 08:43 | PCSTNOTE ---
Please refer to the Bedside Swallow Evaluation in the EMR. Please note, silent aspiration cannot be ruled out at bedside. The patient is a 74 year old female admitted for Acute Respiratory Failure/ Covid-19 positive. Orders received to complete a BSE and r/o aspiration risk. The patient was alert and attentive. Positioned upright in bed and presented the following consistencies: thin liquid via straw, pudding, and cracker/solid. Oral Stage: The patient was viewed to have timely oral preparation and transit for all consistencies. Pharyngeal Stage: The patient was viewed to have timely swallow initiation with good laryngeal elevation and no CSA for all consistencies. Recommend: Regular Diet and 2. Thin Liquid 3. No further speech services indicated at this time. [ End ]
[2024-11-12] MEDS: MULTIVITAMINS /C LUTEIN (CENTRUM SILVER) TABLET *BKC 1 TAB PO (09:07)
[2024-11-12] MEDS: ATORVASTATIN 20 MG TABLET PO (09:07)
[2024-11-12] MEDS: guaiFENesin 12 HR 600 MG TABCR PO ×2 (09:08→20:52)
[2024-11-12] MEDS: CITALOPRAM HYDROBROMIDE 20 MG TABLET PO (09:08)
[2024-11-12] MEDS: ASPIRIN 81 MG ENTERIC TABLET PO (09:09)
[2024-11-12] MEDS: TRIAMCINOLONE ACET 0.1% CREAM 15 GM TUBE 1 APPLIC TOPICAL ×2 (09:10→21:00)
[2024-11-12] MEDS: PSYLLIUM POWDER PACKET 0.5 PACKET BY MOUTH ×2 (09:10→17:54)
--- NOTE | 2024-11-12 09:32 | P.PNIM_ITS ---
Progress Note: A&P Assessment and Plan (1) Acute respiratory failure with hypoxia: Code(s): J96.01 - Acute respiratory failure with hypoxia Status: Acute Assessment and Plan: - symptom onset: Cough ongoing for months, however newly short of breath and cough has worsened within the last 4-5 days. - Oxygen supplementation: Weaned to room air today, keep saturations > 90 - Suspected cause: covid and pneumonia - CXR: Bilateral pulmonary consolidations may represent aspiration pneumonia Resolved. Saturations stable on room air. (2) Sepsis: Qualifiers: Acute respiratory failure type: with hypoxia Sepsis acute organ dysfunction status: with acute organ dysfunction Sepsis type: sepsis due to unspecified organism Severe sepsis acute organ dysfunction type: acute respiratory failure Severe sepsis shock status: without septic shock Qualified Code(s): A41.9 - Sepsis, unspecified organism; R65.20 - Severe sepsis without septic shock; J96.01 - Acute respiratory failure with hypoxia Code(s): A41.9 - Sepsis, unspecified organism Status: Acute Assessment and Plan: Meets SIRS criteria: WBC 3.4, patient was hypotensive (82/44) and hypoxic (94% on RA) upon arrival. - lactic acid: lactic 1.7, procal WNL - Given sepsis bolus x2L with improvement to BP - suspected source: pneumonia and covid - blood cultures drawn on 11/10: pending - UA nonconcerning for infection - CXR: Bilateral pulmonary consolidations may represent aspiration pneumonia - started on Levaquin and Remdesivir WBC WNL. Remains hemodynamically stable. -will repeat labs in am, afebrile (3) Pneumonia: Qualifiers: Pneumonia type: due to COVID-19 virus Qualified Code(s): U07.1 - COVID- 19; J12.82 - Pneumonia due to coronavirus disease 2019 Code(s): J18.9 - Pneumonia, unspecified organism Status: Acute Assessment and Plan: - CXR: Bilateral pulmonary consolidations may represent aspiration pneumonia - risk factors and complicating factors: COVID+ - started on CAP tx: Levaquin - MRSA PCR negative and sputum culture ordered - Speech therapy consulted for bedside eval given aspiration concern and patient noting chronic coughing episodes with meals - Viral PCR negative, however had home COVID test that was positive on 11/10 - supportive care: Tylenol, Mucinex, Tessalon Perles, DuoNebs - +O2 requirement: 84% on room air upon arrival on 11/10, requiring 2L NC. Wean back to room air with stable saturation. (4) COVID-19: Code(s): U07.1 - COVID-19 Status: Acute Assessment and Plan: - symptom onset: Cough ongoing for months, however newly short of breath and cough has worsened within the last 4-5 days. - tested positive for COVID on: 11/10, however negative in the ED but symptomatic - CXR showing bilateral pneumonia - Left lower extremity edema, dopplers ordered - Pt is a candidate for Remdesivir and Dexamethasone, continue treatment according to suggested guidelines. Remdesivir 200 mg IV x1, then 100 mg IV x4 days, dexamethasone 6 mg IV daily x 10 days, or until discharge - Place in [id number] isolation precautions, cardiac monitoring, and continuous pulse ox - Monitor serum electrolytes, CRP, Lactic acid, troponin, CBC, WBC, temperature curve and follow cultures - prophylactic anticoagulation heparin 5,000 units SQ bid 11/12 will stop Remdesivir as cousing bradycardia (pt home covid test was positive, negative here), she is on ra (5) Hypertension: Qualifiers: Hypertension type: primary hypertension Qualified Code(s): I10 - Esse ntial (primary) hypertension Code(s): I10 - Essential (primary) hypertension Status: Chronic Assessment and Plan: - chronic, hypotensive at arrival. Responded well to IV fluids. - continue metoprolol ER 50 mg daily as she has a concurrent history of AFib - blood pressures remain stable, continue to monitor (6) Atrial fibrillation: Code(s): I48.91 - Unspecified atrial fibrillation Status: Acute Assessment and Plan: - EKG: sinus rhythm, rate controlled - Current home medication: metoprolol 50 mg daily - Not on anticoagulation episodes of bradycardia- tele monitoring stop Remdesivir Time Spent With Patient Time with patient: 25 - 35 minutes Subjective Date/time seen: 11/12/24 09:32 Interval history: 74 y/o F with PMH of atrial fibrillation, hypertension, depression, anxiety presents to the hospital for shortness of breath with associated cough and positive home COVID test. Pt is seen and examined. Of note, remdesevir was started per report of positive covid test. Pt had been bradycardic since 11/11 afternoon. She is on RA Review of Systems Review of Systems: All systems reviewed & are unremarkable except as noted in HPI and below Exam Narrative: AF HR 61 RR 20 SPO2 96 BP 120/55 General: female in no acute respiratory distress who is nontoxic appearing, lying semi recumbent in bed. HEENT: Normocephalic. Atraumatic. Extraocular movement intact. Sclera clear and anicteric. No facial asymmetry. Chest: Lungs are course to the bases on auscultation bilaterally to the bases, R>L. No wheezes. CV: Heart was regular rate and rhythm. Abd: Abdomen was soft. Nontender. Nondistended. Positive bowel sounds. Ext: No clubbing, cyanosis, or edema. DP pulses bilaterally. Neuro: Patient is alert and oriented x3. Speech is clear. Const: General: comfortable and no acute distress Other: , female, elderly, nontoxic appearance HENMT: Face/Nose/Sinus: Normal nares present Mouth: Yes moist mucous membranes Eyes: General: appearance normal, both eyes and all related structures Sclera: sclerae normal Pupils: Equal, round and reactive pupils present EOM: EOMs intact bilaterally Resp: Effort & Inspection: normal respiratory effort Auscultation: clear to auscultation bilaterally Other: Nasal cannula place, tolerating well. Cardio: Rate: regular rate Rhythm: regular rhythm Other: S1-S2 present without murmur, rub, ectopy GI: Other: Abdomen soft, nondistended, nontender. Normoactive bowel sounds in all quadrants. Skin: General skin exam: normal color and no rashes or lesions noted Wounds: no wounds Neuro: Cranial nerves: Yes Equal, round and reactive pupils present Speech: normal speech Motor exam (neuro): 5/5 motor strength present throughout Sensory Exam: normal sensation Other: A&O x4 Extrem: General: normal to inspection Psych: Mental Status: mental status grossly normal Affect: normal affect Other: Good insight and judgment, pleasant Objective Data Vital Signs Vital Signs: Vital Signs - 24 hr 11/11/24 12:00 11/11/24 12:38 11/11/24 16:00 Temperature 97.4 F L Pulse Rate 64 61 55 L Respiratory Rate 20 Blood Pressure 120/55 L Pulse Oximetry 96 Oxygen Delivery 11/11/24 20:00 11/11/24 20:00 11/11/24 21:07 Temperature 98.3 F Pulse Rate 52 L 57 L Respiratory Rate 16 Blood Pressure 129/65 Pulse Oximetry 92 Oxygen Delivery Room Air 11/12/24 00:00 11/12/24 04:00 11/12/24 05:08 Temperature 97.8 F Pulse Rate 52 L 36 L 58 L Respiratory Rate 18 Blood Pressure 151/55 H Pulse Oximetry 93 Oxygen Delivery 11/12/24 09:09 Temperature Pulse Rate 50 L Respiratory Rate Blood Pressure Pulse Oximetry Oxygen Delivery Intake/Output Intake/Output: Intake & Output 11/09/24 11/10/24 11/11/24 11/12/24 23:59 23:59 23:59 23:59 Intake Total 2390 1570 400 Output Total 25 Balance 2365 1570 400 Meds/Results Medications: Active Medications Generic Name Dose Route Start Last Admin Trade Name Freq PRN Reason Stop Dose Admin Acetaminophen 650 mg 11/10/24 13:24 Acetaminophen 325 Mg Tablet PO Q6H PRN Pain Rated 1-3 Albuterol/Ipratropium 3 ml 11/10/24 13:24 Ipratropium 0.5 Mg/Albuterol Sulfate 2.5 Mg Ampul.Neb 3 Ml INHALATION Q6H PRN Shortness Of Breath Or Wheezing Alprazolam 1 mg 11/10/24 16:49 Alprazolam (*Crx) 0.5 Mg Tablet PO QHS PRN Anxiety Aspirin 81 mg 11/11/24 09:00 11/12/24 09:09 Aspirin 81 Mg Enteric Tablet PO 81 mg DAILY MARISABEL Administration Atorvastatin Calcium 20 mg 11/11/24 09:00 11/12/24 09:07 Atorvastatin 20 Mg Tablet PO 20 mg DAILY MARISABEL Administration Benzonatate 100 mg 11/10/24 13:24 Benzonatate 100 Mg Capsule PO TID PRN Cough Citalopram Hydrobromide 20 mg 11/11/24 09:00 11/12/24 09:08 Citalopram Hydrobromide 20 Mg Tablet PO 20 mg DAILY MARISABEL Administration Dexamethasone 6 mg 11/11/24 08:00 11/12/24 09:07 Dexamethasone 2 Mg Tablet PO 11/19/24 08:01 6 mg DAILY@0800 MARISABEL Administration Guaifenesin 600 mg 11/10/24 21:00 11/12/24 09:08 Guaifenesin 12 Hr 600 Mg Tabcr PO 600 mg Q12HR MARISABEL Administration Heparin Sodium (Porcine) 5,000 units 11/10/24 21:00 11/12/24 09:08 Heparin Sodium 5,000 Units/Ml Vial SUB-Q 5,000 units Q12HR MARISABEL Administration Levofloxacin/Dextrose 750 mg in 150 mls @ 100 mls/hr 11/12/24 09:00 Levaquin 750 Mg/D5w 150 Ml IVPB Q48H MARISABEL Remdesivir 100 mg in 250 mls @ 250 mls/hr 11/11/24 10:00 11/11/24 10:52 IVPB 11/14/24 10:59 250 mls/hr Q24H MARISABEL Administration Metoprolol Succinate 50 mg 11/11/24 09:00 11/12/24 09:09 Metoprolol Succinate Ext Rel 50 Mg Tabcr PO Not Given DAILY MARISABEL Multivitamins/Minerals 1 tab 11/11/24 09:00 11/12/24 09:07 Multivitamins /C Lutein (Centrum Silver) Tablet *Bkc PO 1 tab DAILY MARISABEL Administration Pantoprazole Sodium 40 mg 11/11/24 09:00 11/11/24 08:27 Pantoprazole Sodium Iv 40 Mg Vial IV PUSH 40 mg QAM MARISABEL Administration Perflutren Lipid Microsphere 0 ml 11/11/24 16:10 Perflutren Lipid Microspheres 1.5 Ml Vial Diluted To 10 Ml Total Volume IV PUSH 11/14/24 16:10 ONCE PRN adequate visualization Protocol Psyllium Hydrophilic Mucilloid 0.5 packet 11/11/24 09:00 11/12/24 09:10 Psyllium Powder Packet BY MOUTH 0.5 packet BID MARISABEL Administration Triamcinolone Acetonide 1 applic 11/10/24 21:00 11/12/24 09:10 Triamcinolone Acet 0.1% Cream 15 Gm Tube TOPICAL 1 applic Q12HR MARISABEL Administration Radiology Results: ITS Impressions Chest X-Ray 11/10/24 11:02 IMPRESSION: Bilateral pulmonary consolidations may represent aspiration pneumonia in appropriate clinical settings. Clinical correlation si recommended. Short-term follow-up chest radiograph is recommended after appropriate clinical therapy to document stability and/or resolution. Venous Doppler Study 11/11/24 19:08 IMPRESSION: 1: No lower extremity deep venous thrombosis. Quality VTE Prophylaxis VTE prophylaxis: pharmacologic ordered
[2024-11-12 09:41] LABS: INR 1.3; Prothrombin Time 15.8 Seconds (11.1-14.7)
[2024-11-12] MEDS: PANTOPRAZOLE SODIUM IV 40 MG VIAL IV PUSH (09:44)
[2024-11-12] MEDS: levoFLOXacin 750 MG/D5W 150 ML 750 MG/150 ML BAG 100 MG IVPB (09:44)
[2024-11-12 09:55] LABS: Alanine Aminotransferase 38 U/L (6-35); Albumin Level 3.5 g/dL (3.5-5.1); Alkaline Phosphatase 76 U/L (38-126); Aspartate Amino Transferase 48 U/L (14-36); Bilirubin,Total 0.7 mg/dL (0.2-1.3); Total Protein 6.3 g/dL (6.3-8.2)
[2024-11-12] MEDS: BENZONATATE 100 MG CAPSULE PO (20:57)
[2024-11-12] MEDS: ALPRAZolam (*CRX) 0.5 MG TABLET 1 MG PO (20:57)
[2024-11-13] VITALS: PULSE 51
[2024-11-13 04:00] VITALS: PULSE 43
[2024-11-13 06:00] VITALS: BP 122/55; PULSE 61; RESP 18; TEMP 36.4; O2SAT 90
[2024-11-13 06:25] LABS: Hematocrit 40.1 % (37.0-47.0); Hemoglobin 13.0 g/dL (12.0-15.0); Mean Corpuscular HGB Conc 32.4 g/dl (32-36); Mean Corpuscular Hemoglobin 28.6 pg (26-34); Mean Corpuscular Volume 88.3 fl (80-100); Platelet Count Result 279 k/mm3 (150-375); Red Blood Count 4.54 M/mm3 (4.2-5.4); White Blood Count 9.5 K/mm3 (4.5-10.0)
[2024-11-13 06:46] LABS: Alanine Aminotransferase 36 U/L (6-35); Albumin Level 3.3 g/dL (3.5-5.1); Alkaline Phosphatase 76 U/L (38-126); Anion Gap 7 mmol/L (4-12); Aspartate Amino Transferase 40 U/L (14-36); Bilirubin,Total 0.5 mg/dL (0.2-1.3); Blood Urea Nitrogen 18 mg/dL (7-17); Calcium 9.1 mg/dL (8.4-10.2); Carbon Dioxide 26 mmol/L (22-30); Chloride 108 mmol/L (98-107); Estimated CRCL calculation 56 ml/min; Estimated Glomerular Filt Rate > 60; Glucose 130 mg/dL (65-110); Potassium 4.0 mmol/L (3.4-5.0); Sodium 141 mmol/L (137-145); Total Protein 6.2 g/dL (6.3-8.2)
[2024-11-13 08:00] VITALS: PULSE 43; PULSE 54; O2SAT 93
[2024-11-13] MEDS: PANTOPRAZOLE SODIUM IV 40 MG VIAL IV PUSH (08:13)
[2024-11-13 08:14] VITALS: PULSE 54
[2024-11-13] MEDS: CITALOPRAM HYDROBROMIDE 20 MG TABLET PO (08:14)
[2024-11-13] MEDS: PSYLLIUM POWDER PACKET 0.5 PACKET BY MOUTH (08:14)
[2024-11-13] MEDS: MULTIVITAMINS /C LUTEIN (CENTRUM SILVER) TABLET *BKC 1 TAB PO (08:14)
[2024-11-13] MEDS: ATORVASTATIN 20 MG TABLET PO (08:14)
[2024-11-13] MEDS: ASPIRIN 81 MG ENTERIC TABLET PO (08:14)
[2024-11-13] MEDS: guaiFENesin 12 HR 600 MG TABCR PO (08:14)
[2024-11-13] MEDS: TRIAMCINOLONE ACET 0.1% CREAM 15 GM TUBE 1 APPLIC TOPICAL (08:15)
[2024-11-13 12:00] VITALS: PULSE 53
--- NOTE | 2024-11-13 13:13 | PM.IMPN ---
Progress Note: A&P Assessment and Plan (1) Acute respiratory failure with hypoxia: Code(s): J96.01 - Acute respiratory failure with hypoxia Status: Acute Assessment and Plan: - symptom onset: Cough ongoing for months, however newly short of breath and cough has worsened within the last 4-5 days. - Oxygen supplementation: Weaned to room air today, keep saturations > 90 - Suspected cause: covid and pneumonia - CXR: Bilateral pulmonary consolidations may represent aspiration pneumonia Resolved. Saturations stable on room air. (2) Sepsis: Qualifiers: Sepsis type: sepsis due to unspecified organism Sepsis acute organ dysfunction status: with acute organ dysfunction Severe sepsis acute organ dysfunction type: acute respiratory failure Acute respiratory failure type: with hypoxia Severe sepsis shock status: without septic shock Qualified Code(s): A41.9 - Sepsis, unspecified organism; R65.20 - Severe sepsis without septic shock; J96.01 - Acute respiratory failure with hypoxia Code(s): A41.9 - Sepsis, unspecified organism Status: Acute Assessment and Plan: Meets SIRS criteria: WBC 3.4, patient was hypotensive (82/44) and hypoxic (94% on RA) upon arrival. - lactic acid: lactic 1.7, procal WNL - Given sepsis bolus x2L with improvement to BP - suspected source: pneumonia and covid - blood cultures drawn on 11/10: pending - UA nonconcerning for infection - CXR: Bilateral pulmonary consolidations may represent aspiration pneumonia - started on Levaquin and Remdesivir WBC WNL. Remains hemodynamically stable. -will repeat labs in am, afebrile 11/13 BC prelim negative (3) Pneumonia: Qualifiers: Pneumonia type: due to COVID-19 virus Qualified Code(s): U07.1 - COVID-19; J12.82 - Pneumonia due to coronavirus disease 2019 Code(s): J18.9 - Pneumonia, unspecified organism Status: Acute Assessment and Plan: - CXR: Bilateral pulmonary consolidations may represent aspiration pneumonia - risk factors and complicating factors: COVID+ - started on CAP tx: Levaquin - MRSA PCR negative and sputum culture ordered - Speech therapy consulted for bedside eval given aspiration concern and patient noting chronic coughing episodes with meals - Viral PCR negative, however had home COVID test that was positive on 11/10 - supportive care: Tylenol, Mucinex, Tessalon Perles, DuoNebs - +O2 requirement: 84% on room air upon arrival on 11/10, requiring 2L NC. Wean back to room air with stable saturation. 11/13 po levaquin 2 more doses- last dose on 11/14 11 am (4) COVID-19: Code(s): U07.1 - COVID-19 Status: Acute Assessment and Plan: - symptom onset: Cough ongoing for months, however newly short of breath and cough has worsened within the last 4-5 days. - tested positive for COVID on: 11/10, however negative in the ED but symptomatic - CXR showing bilateral pneumonia - Left lower extremity edema, dopplers ordered - Pt is a candidate for Remdesivir and Dexamethasone, continue treatment according to suggested guidelines. Remdesivir 200 mg IV x1, then 100 mg IV x4 days, dexamethasone 6 mg IV daily x 10 days, or until discharge - Place in [place] [id number] isolation precautions, cardiac monitoring, and continuous pulse ox - Monitor serum electrolytes, CRP, Lactic acid, troponin, CBC, WBC, temperature curve and follow cultures - prophylactic anticoagulation heparin 5,000 units SQ bid 11/12 will stop Remdesivir as cousing bradycardia (pt home covid test was positive, negative here), she is on ra (5) Hypertension: Qualifiers: Hypertension type: primary hypertension Qualified Code(s): I10 - Essential (primary) hypertension Code(s): I10 - Essential (primary) hypertension Status: Chronic Assessment and Plan: - chronic, hypotensive at arrival. Responded well to IV fluids. - continue metoprolol ER 50 mg daily as she has a concurrent history of AFib - blood pressures remain stable, continue to monitor (6) Atrial fibrillation: Code(s): I48.91 - Unspecified atrial fibrillation Status: Acute Assessment and Plan: - EKG: sinus rhythm, rate controlled - Current home medication: metoprolol 50 mg daily - Not on anticoagulation episodes of bradycardia- tele monitoring stop Remdesivir Time Spent With Patient Time with patient: 25 - 35 minutes Subjective Date/time seen: 11/13/24 13:13 Interval history: 74 y/o F with PMH of atrial fibrillation, hypertension, depression, anxiety presents to the hospital for shortness of breath with associated cough and positive home COVID test. Pt is seen and examined. Of note, remdesivir was started per report of positive covid test. Pt had been bradycardic since 11/11 afternoon. She is on RA 11/13 remdesivir was stopped. HR better. pt is Review of Systems Review of Systems: All systems reviewed & are unremarkable except as noted in HPI and below Exam Narrative: AF HR 61 RR 20 SPO2 96 BP 120/55 General: female in no acute respiratory distress who is nontoxic appearing, lying semi recumbent in bed. HEENT: Normocephalic. Atraumatic. Extraocular movement intact. Sclera clear and anicteric. No facial asymmetry. Chest: Lungs are course to the bases on auscultation bilaterally to the bases, R>L. No wheezes. CV: Heart was regular rate and rhythm. Abd: Abdomen was soft. Nontender. Nondistended. Positive bowel sounds. Ext: No clubbing, cyanosis, or edema. DP pulses bilaterally. Neuro: Patient is alert and oriented x3. Speech is clear. Const: General: comfortable and no acute distress Other: , female, elderly, nontoxic appearance HENMT: Face/Nose/Sinus: Normal nares present Mouth: Yes moist mucous membranes Eyes: General: appearance normal, both eyes and all related structures Sclera: sclerae normal Pupils: Equal, round and reactive pupils present EOM: EOMs intact bilaterally Resp: Effort & Inspection: normal respiratory effort Auscultation: clear to auscultation bilaterally Other: Nasal cannula place, tolerating well. Cardio: Rate: regular rate Rhythm: regular rhythm Other: S1-S2 present without murmur, rub, ectopy GI: Other: Abdomen soft, nondistended, nontender. Normoactive bowel sounds in all quadrants. Skin: General skin exam: normal color and no rashes or lesions noted Wounds: no wounds Neuro: Cranial nerves: Yes Equal, round and reactive pupils present Speech: normal speech Motor exam (neuro): 5/5 motor strength present throughout Sensory Exam: normal sensation Other: A&O x4 Extrem: General: normal to inspection Psych: Mental Status: mental status grossly normal Affect: normal affect Other: Good insight and judgment, pleasant Objective Data Vital Signs Vital Signs: Vital Signs - 24 hr 11/12/24 14:00 11/12/24 16:00 11/12/24 20:00 Temperature 97.9 F Pulse Rate 65 65 60 Respiratory Rate 18 Blood Pressure 126/94 H Pulse Oximetry 93 11/12/24 22:00 11/13/24 00:00 11/13/24 04:00 Temperature 96.9 F L Pulse Rate 61 51 L 43 L Respiratory Rate 18 Blood Pressure 126/45 L Pulse Oximetry 90 11/13/24 06:00 11/13/24 08:14 Temperature 97.5 F L Pulse Rate 61 54 L Respiratory Rate 18 Blood Pressure 122/55 L Pulse Oximetry 90 Intake/Output Intake/Output: Intake & Output 11/10/24 11/11/24 11/12/24 11/13/24 23:59 23:59 23:59 23:59 Intake Total 2390 1570 1120 640 Output Total 25 Balance 2365 1570 1120 640 Meds/Results Medications: Active Medications Generic Name Dose Route Start Last Admin Trade Name Freq PRN Reason Stop Dose Admin Acetaminophen 650 mg 11/10/24 13:24 Acetaminophen 325 Mg Tablet PO Q6H PRN Pain Rated 1-3 Albuterol/Ipratropium 3 ml 11/10/24 13:24 Ipratropium 0.5 Mg/Albuterol Sulfate 2.5 Mg Ampul.Neb 3 Ml INHALATION Q6H PRN Shortness Of Breath Or Wheezing Alprazolam 1 mg 11/10/24 16:49 11/12/24 20:57 Alprazolam (*Crx) 0.5 Mg Tablet PO 1 mg QHS PRN Administration Anxiety Aspirin 81 mg 11/11/24 09:00 11/13/24 08:14 Aspirin 81 Mg Enteric Tablet PO 81 mg DAILY MARISABEL Administration Atorvastatin Calcium 20 mg 11/11/24 09:00 11/13/24 08:14 Atorvastatin 20 Mg Tablet PO 20 mg DAILY MARISABEL Administration Benzonatate 100 mg 11/10/24 13:24 11/12/24 20:57 Benzonatate 100 Mg Capsule PO 100 mg TID PRN Administration Cough Citalopram Hydrobromide 20 mg 11/11/24 09:00 11/13/24 08:14 Citalopram Hydrobromide 20 Mg Tablet PO 20 mg DAILY MARISABEL Administration Dexamethasone 6 mg 11/11/24 08:00 11/13/24 08:14 Dexamethasone 2 Mg Tablet PO 11/19/24 08:01 6 mg DAILY@0800 MARISABEL Administration Guaifenesin 600 mg 11/10/24 21:00 11/13/24 08:14 Guaifenesin 12 Hr 600 Mg Tabcr PO 600 mg Q12HR [facility] Administration Heparin Sodium (Porcine) 5,000 units 11/10/24 21:00 11/13/24 08:14 Heparin Sodium 5,000 Units/Ml Vial SUB-Q 5,000 units Q12HR MARISABEL Administration Levofloxacin 750 mg 11/13/24 11:00 11/13/24 11:09 Levofloxacin 750 Mg Tablet PO 11/14/24 11:01 750 mg DAILY@1100 [facility] Administration Metoprolol Succinate 50 mg 11/11/24 09:00 11/13/24 08:14 Metoprolol Succinate Ext Rel 50 Mg Tabcr PO Not Given DAILY [facility] Multivitamins/Minerals 1 tab 11/11/24 09:00 11/13/24 08:14 Multivitamins /C Lutein (Centrum Silver) Tablet *Bkc PO 1 tab DAILY MARISABEL Administration Pantoprazole Sodium 40 mg 11/11/24 09:00 11/13/24 08:13 Pantoprazole Sodium Iv 40 Mg Vial IV PUSH 40 mg QAM [facility] Administration Perflutren Lipid Microsphere 0 ml 11/11/24 16:10 Perflutren Lipid Microspheres 1.5 Ml Vial Diluted To 10 Ml Total Volume IV PUSH 11/14/24 16:10 ONCE PRN adequate visualization Protocol Psyllium Hydrophilic Mucilloid 0.5 packet 11/11/24 09:00 11/13/24 08:14 Psyllium Powder Packet BY MOUTH 0.5 packet BID MARISABEL Administration Triamcinolone Acetonide 1 applic 11/10/24 21:00 11/13/24 08:15 Triamcinolone Acet 0.1% Cream 15 Gm Tube TOPICAL 1 applic Q12HR MARISABEL Administration Radiology Results: ITS Impressions Chest X-Ray 11/10/24 11:02 IMPRESSION: Bilateral pulmonary consolidations may represent aspiration pneumonia in appropriate clinical settings. Clinical correlation si recommended. Short-term follow-up chest radiograph is recommended after appropriate clinical therapy to document stability and/or resolution. Venous Doppler Study 11/11/24 19:08 IMPRESSION: 1: No lower extremity deep venous thrombosis. Labs Labs: Laboratory Results - last 24 hr 11/13/24 05:58 WBC 9.5 RBC 4.54 Hgb 13.0 Hct 40.1 MCV 88.3 MCH 28.6 MCHC 32.4 RDW 13.2 Plt Count 279 MPV 10.2 Sodium 141 Potassium 4.0 Chloride 108 H Carbon Dioxide 26 Anion Gap 7 BUN 18 H Creatinine 0.87 Estim Creat Clear Calc 56 Estimated GFR > 60 Glucose 130 H Calcium 9.1 Total Bilirubin 0.5 AST 40 H ALT 36 H Alkaline Phosphatase 76 Total Protein 6.2 L Albumin 3.3 L Quality VTE Prophylaxis VTE prophylaxis: pharmacologic ordered
--- NOTE | 2024-11-13 13:45 | ECG_ITS ---
Test Date: 2024-11-13 14:43:30 Measurements Intervals Reynolds Rate: 57 P: 29 WA: 163 QRS: 3 QRSD: 89 T: 6 QT: 448 QTc: 438 Interpretive Statements SINUS BRADYCARDIA BASELINE ARTIFACT- I, III, AVR, AVL, AVF BORDERLINE ECG Compared to ECG 11/10/2024 10:09:29 HEART RATE HAS DECREASED Electronically Signed On 11-13-2024 17:12:38 CDT by Huang Dela Cruz D.O.
--- NOTE | 2024-11-13 13:52 | P.DS_ITS ---
DS: Admitting Diagnosis Discharge Date 11/13 Admitting Diagnosis covid DS: Discharge Diagnosis Discharge Diagnosis (1) Acute respiratory failure with hypoxia: Code(s): J96.01 - Acute respiratory failure with hypoxia Status: Acute Assessment and Plan: (2) Sepsis: Qualifiers: Sepsis type: sepsis due to unspecified organism Sepsis acute organ dysfunction status: with acute organ dysfunction Severe sepsis acute organ dysfunction type: acute respiratory failure Acute respiratory failure type: with hypoxia Severe sepsis shock status: without septic shock Qualified Code(s): A41.9 - Sepsis, unspecified organism; R65.20 - Severe sepsis without septic shock; J96.01 - Acute respiratory failure with hypoxia Code(s): A41.9 - Sepsis, unspecified organism Status: Acute (3) Pneumonia: Qualifiers: Pneumonia type: due to COVID-19 virus Qualified Code(s): U07.1 - COVID- 19; J12.82 - Pneumonia due to coronavirus disease 2019 Code(s): J18.9 - Pneumonia, unspecified organism Status: Acute (4) COVID-19: Code(s): U07.1 - COVID-19 Status: Acute (5) Hypertension: Qualifiers: Hypertension type: primary hypertension Qualified Code(s): I10 - Essential (primary) hypertension Code(s): I10 - Essential (primary) hypertension Status: Chronic (6) Atrial fibrillation: Code(s): I48.91 - Unspecified atrial fibrillation Status: Acute DS: Summary Hospital Course Hospital Course: 74 y/o F with PMH of atrial fibrillation, hypertension, depression, anxiety presents to the hospital for shortness of breath with associated cough and posit serafin home COVID test. Remdisivir was started but causing bradycardia-so stopped. Discussed anticoag with pt and daughter. 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 Pt was on metoprolol for a long time but since it was held (due to bradycardia)- we will do EKG prior to discharge, If afib-will start on anticoag. If NSR-will continue with metoprolol. Will need to check HR in am and keep log.Hold metoprol if HR below 60. need a close f/u with pcp until established with parts counterperson. Will need two more doses of levaquin -rx sent. Noted, elevated liver enzymes. Will need to be repeated and monitored. Will repeat lab in 1 week or so after discharge. Prelim BC negative. Time Spent with Patient Time attestation: Total time spent providing and/or coordinating discharge services: Exam Narrative: General: female in no acute respiratory distress who is nontoxic appearing, lying semi recumbent in bed. HEENT: Normocephalic. Atraumatic. Extraocular movement intact. Sclera clear and anicteric. No facial asymmetry. Chest: Lungs are course to the bases on auscultation bilaterally to the bases, R>L. No wheezes. CV: Heart was regular rate and rhythm. Abd: Abdomen was soft. Nontender. Nondistended. Positive bowel sounds. Ext: No clubbing, cyanosis, or edema. DP pulses bilaterally. Neuro: Patient is alert and oriented x3. Speech is clear. Const: General: comfortable and no acute distress Other: , female, elderly, nontoxic appearance HENMT: Face/Nose/Sinus: Normal nares present Mouth: Yes moist mucous membranes Eyes: General: appearance normal, both eyes and all related structures Sclera: sclerae normal Pupils: Equal, round and reactive pupils present EOM: EOMs intact bilaterally Resp: Effort & Inspection: normal respiratory effort Auscultation: clear to auscultation bilaterally Other: ra Cardio: Rate: regular rate Rhythm: regular rhythm Other: S1-S2 present without murmur, rub, ectopy GI: GI Palp: Yes Soft to palpation Skin: General skin exam: normal color and no rashes or lesions noted Wounds: no wounds Neuro: Cranial nerves: Yes Equal, round and reactive pupils present Speech: normal speech Motor exam (neuro): 5/5 motor strength present throughout Sensory Exam: normal sensation Other: A&O x4 Extrem: General: normal to inspection Psych: Mental Status: mental status grossly normal Affect: normal affect Other: Good insight and judgment, pleasant DS: Data Data Completed and Pending Completed studies during hospitalization: chest xray Labs on day of discharge: Labs from last 24 hours 11/13/24 05:58 WBC 9.5 RBC 4.54 Hgb 13.0 Hct 40.1 MCV 88.3 MCH 28.6 MCHC 32.4 RDW 13.2 Plt Count 279 MPV 10.2 Sodium 141 Potassium 4.0 Chloride 108 H Carbon Dioxide 26 Anion Gap 7 BUN 18 H Creatinine 0.87 Estim Creat Clear Calc 56 Estimated GFR > 60 Glucose 130 H Calcium 9.1 Total Bilirubin 0.5 AST 40 H ALT 36 H Alkaline Phosphatase 76 Total Protein 6.2 L Albumin 3.3 L Preliminary micro results at discharge 11/10/24 10:26 Blood Culture - Preliminary Blood 11/10/24 10:44 Blood Culture - Preliminary Blood Discharge Plan Discharge Attending physician on discharge: Amina Rios Consulting providers: Arianna Diamond Discharging Clinician: Adenike Velásquez Patient Disposition: Home Activity: may shower Diet: heart healthy Discharge Instructions: YOu were admitted for covid/pneumonia. Remdisivir was started but causing bradycardia-so stopped. As we discussed- please f/u witha new parts counterperson for [employer] and anticoag recommendations. We will do EKG prior to discharge, If afib-will start on anticoag. If NSR-will continue with metoprolol. Will need to check HR in am and keep log.Hold metoprolol if HR below 60. need a close f/u with pcp until established with parts counterperson. Will need two more doses of levaquin -rx sent. Noted, elevated liver enzymes. Will need to be repeated and monitored. Will repeat lab in 1 week or so after discharge. Prelim blood cultures negative. If final blood cultures grow any bacteria or there is anything concerning- we will call and let you know. Patient Instructions: Antibiotic Form Patient Language: Yi Stand Alone Forms: General Discharge Information Follow-up/Referrals: James Braxton MD [Physician, Cardiology] - 2 Weeks Patrick Rubio MD [Primary Care Provider, Family Practice] - 2 Weeks Discharge Medications: New guaifenesin [Mucus Relief ER] 600 mg Tablet Extended Release 12hr 600 mg PO Q12HR Qty: 30 0RF levofloxacin 750 mg tablet 750 mg PO DAILY 2 Days Qty: 2 0RF Continued aspirin [Adult Aspirin Regimen] 81 mg tablet,delayed release (DR/EC) 81 mg PO DAILY multivitamin-iron (hematinic) Tablet 1 tablet PO DAILY psyllium husk [Fiber (psyllium husk)] 0.52 gram capsule 1.56 g PO BID triamcinolone acetonide 0.1 % cream 1 applic topical BID Qty: 80 0RF citalopram 20 mg tablet 20 mg PO DAILY Qty: 90 3RF atorvastatin 20 mg tablet 20 mg PO DAILY Qty: 90 3RF alprazolam 0.5 mg tablet 1 mg PO QHS PRN (Reason: anxiety) Qty: 90 4RF Rx Instructions: Take 2 tablets at bedtime as needed for sleep. metoprolol succinate 50 mg tablet extended release 24 hr See Rx Instructions .ROUTE .COMPLEX Qty: 90 0RF Dose Instruction: Take 1 tablet by mouth once daily Rx Instructions: Take 1 tablet by mouth once daily Date of admission: 11/11/24 12:00 Primary Care Provider: Patrick Rubio Admitting Provider: Calvin Stearns Attending physician on admission: Calvin Stearns Condition: Stable Quality VTE Prophylaxis VTE prophylaxis: pharmacologic ordered Hospitalist MIPS Heart Failure (Exclusion) Patient has history of Heart Transplant or Left Ventricular Assistive Device?: No IF YES, STOP HERE Heart Failure (Qualifier) Patient has current or prior documentation of LVEF less than or equal to 40%, or mod/servere depressed LVSF?: No IF NO, STOP HERE
== END 2024-11-13 15:35 | disposition home or self-care (01) | DRG 871 ==
LOC: ANHED 12:49 → ANH3MEDSUR 13:29
PROVIDERS: Student in an Organized Health Care Education/Training Program; Admitting Provider Family Medicine; Emergency Provider Emergency Medicine; PCP Family Medicine Adolescent Medicine; Visit Provider Nurse Practitioner
DX: A41.9 Sepsis, unspecified organism (principal); J12.82 Pneumonia due to coronavirus disease 2019; J96.01 Acute respiratory failure with hypoxia; U07.1 COVID-19; R65.20 Severe sepsis without septic shock; I10 Essential (primary) hypertension; I48.91 Unspecified atrial fibrillation; R00.1 Bradycardia, unspecified; F32.A Depression, unspecified; F41.9 Anxiety disorder, unspecified; E78.5 Hyperlipidemia, unspecified; Z79.82 Long term (current) use of aspirin; Z79.899 Other long term (current) drug therapy; Z87.891 Personal history of nicotine dependence; Z87.19 Personal history of other diseases of the digestive system
CPT/HCPCS: 36415; 71045; 80053; 80076; 81001; 82948; 83605; 83735; 83880; 84145; 84484; 85025; 85027; 85610; 85652; 85730; 87040; 87086; 87637; 87641; 92610; 93005; 93306; 93970; 96361; 96365; 96367; 96372; 96375; 99285; A9270; G0378; J0248; J1644; J1956; J2470; J7030; J7120; J8540

== ENCOUNTER 2024-12-22 09:44 | Outpatient (CLI) | payer MEDICARE, SELFPAY ==
--- NOTE | ~2024-12-22 | XR_ITS ---
EXAMINATION: XR chest 2V, 12/22/2024 9:48 CDT HISTORY: Covid and pneumonia 10/2024, continues with cough, non smoker COMPARISON: No comparisons available. Technique: 2 views obtained. Findings: The lungs are clear, no effusion. No pneumothorax. Heart is normal size. Mediastinal and hilar contours are within normal limits. Bony thorax no acute abnormality. Impression: No acute cardiopulmonary abnormality. Reviewed, dictated and finalized at location P. Impression: No acute cardiopulmonary abnormality.
== END 2024-12-22 09:45 | disposition home or self-care (01) ==
PROVIDERS: PCP Family Medicine Adolescent Medicine; Visit Provider Family Medicine Adolescent Medicine
DX: U07.1 COVID-19 (principal); J12.82 Pneumonia due to coronavirus disease 2019; R05.3 Chronic cough
CPT/HCPCS: 71046